=== PATIENT | female | born 1960 | race Caucasian/White ===

== ENCOUNTER 2016-06-29 10:38 | Inpatient (IN) | payer BC ==
[~2016-06-29] VITALS: Ht 152.5 cm; Wt 85.8 kg
[~2016-06-29 10:38] MED LIST: LISINOPRIL; OXYC-541 PO; PAXIL
--- OUTSIDE RECORDS SUMMARY | 2016-06-29 10:42 | XMS REPORT | Continuity of Care Document ---
Author Author Cheyenne Bush MA [facility] Ambulatory Address [address] [place] [id number] Phone Unavailable Payers Payer name Insurance type Covered republican ID Authorization(s) Unknown Problems Condition Effective Dates (start - stop) Clinical Status Psoriasis - *Chronic Tobacco Abuse - *Acute Cellulitis and abscess of leg, except foot - *Acute Depression - *Chronic Anxiety - *Chronic Hypertension, Unspecified - *Chronic Cellulitis - *Resolved Psoriasis - *Chronic Depression - *Chronic Hypertension - *Chronic Disorder of thyroid - *Chronic Tobacco Abuse - *Chronic Otitis externa - *Chronic Family History Family Member Diagnosis Age At Onset Status Father (Unknown) Eczema Yes Brother (Unknown) Cancer Yes Brother (Unknown) Allergies Yes Father (Unknown) CVA (Stroke) Yes Mother (Unknown) Hypertension Yes Mother (Unknown) Depression Yes Mother (Unknown) CVA (Stroke) Yes Father (Unknown) Alcoholism Yes Father (Unknown) Hypertension Yes Brother (Unknown) Asthma Yes Social History Social History Element Description Quantity Unknown Allergies, Adverse Reactions, Alerts Substance Reaction Severity Status SULFANILAMIDE Hives/Skin Rash Unknown Medications Medication Instructions Dosage Effective Dates (start - stop) Status Keflex 500 mg capsule take 1 capsule (500MG) by oral route every 12 hours for 10 days 500 MG - No Longer Active Paxil 20 mg tablet take 1 tablet (20MG) by oral route every day 20 MG - No Longer Active lisinopril 20 mg tablet take 1 tablet (20MG) by oral route every day 20 MG - No Longer Active triamcinolone acetonide 0.1 % lotion apply by topical route 2 times every day a thin layer to the affected area(s) 0 - No Longer Active triamcinolone acetonide 0.1 % topical ointment apply by topical route 2 times every day a thin layer to the affected area(s) 0 - Active Paxil 20 mg tablet take 1 tablet (20MG) by oral route every day 20 MG - Active lisinopril 20 mg tablet take 1 tablet (20MG) by oral route every day 20 MG - Active Immunizations Vaccine Date Status Comments Unknown Results Test Name Date and Time Measure Units Reference Range Abnormal Flag Comments Unknown Vital Signs Date / Time: Height Weight Pulse Rate Blood Pressure Temperature /14:02:00 61.00 in 197.80 lbs 80 /min 164/94 mm[Hg] 99.0 F Procedures Procedure Date Unknown Encounters Encounter Location Date Patient Visit [facility] Patient Visit [facility] Patient Visit [facility] Advance Directives Directive Effective Date Unknown
--- OUTSIDE RECORDS SUMMARY | 2016-06-29 10:42 | XMS REPORT | Continuity of Care Document ---
Author Author [facility] Organization [facility] Address Unknown Phone Unavailable Allergies Medications Problems Procedures Results Encounters ACCT No. Visit Date/Time Discharge Status Pt. Type Provider Facility Loc./Unit Complaint [id number] 06/24/2013 08:46:00 06/24/2013 23 :59:59 CLS Outpatient [id number] 05/27/2013 13:54:00 05/27/2013 23 :59:59 CLS Outpatient
--- OUTSIDE RECORDS SUMMARY | 2016-06-29 10:42 | XMS REPORT | Referral Summary ---
Author Organization Unknown Address Unknown Phone Unavailable Care Team Providers Care Launderer Hand Name Role Phone Jayden Malave Primary Care Physician [phone] Encounter [facility] Date(s): 05/19/14 - 05/19/14 [facility] [address], [place] [address] Discharge Disposition: Home or Self Care Attending Physician: Will Tracy Admitting Physician: Will Tracy Referring Physician: Tawnya Malave MD Vital Signs No data available for this section Problem List Condition Effective Dates Status Health Status Informant Anemia(Confirmed) Active Anxiety(Confirmed) Active Asthma(Confirmed) Active Bronchitis(Confirmed Active ) Cellulitis(Confirmed Resolved ) COPD(Confirmed) Active Depression(Confirmed Active ) Skin Active disorder(Confirmed) Hypertension(Confirm Active ed) Psoriasis(Confirmed) Active Thyroid Active disorder(Confirmed) Allergies, Adverse Reactions, Alerts Substance Reaction Severity Status sulfa drugs Rash Active Medications clobetasol 0.05% topical ointment 1 xuan, Topical, BID, # 60 g, 0 Refill(s), [facility][id number] Start Date: 05/19/14 Status: Ordered DuoNeb 0.5 mg-2.5 mg/3 mL inhalation solution 3 mL, Inhalation, QID, # 120 mL, 0 Refill(s), [facility][id number] Start Date: 05/18/14 Stop Date: 05/28/14 Status: Ordered hydrOXYzine hydrochloride 25 mg oral tablet 1 tabs, Oral, QID, # 90 tabs, 1 Refill(s), Pharmacy: [facility] #[id number], 1 tabs Oral QID Start Date: 05/19/14 Status: Ordered lisinopril 20 mg oral tablet 1 tabs, Oral, Daily, # 30 tabs, 5 Refill(s), Pharmacy: [id number] Start Date: 11/10/13 Status: Ordered Paxil 40 mg oral tablet 1 tabs, Oral, Daily, # 30 tabs, 5 Refill(s), Pharmacy: [id number], 1 tabs Oral Daily Start Date: 11/10/13 Status: Ordered predniSONE 5 mg oral tablet See Instructions, take 20mg for 7 days, then 15mg for 7 days, then 10mg for 7 days, 5mg for 7 days with food, # 70 tabs, 0 Refill(s), Pharmacy: [facility] #[id number], take 20mg for 7 days, then 15mg for 7 days, then 10mg for 7 days, 5mg for 7 days... Special Instructions: take 20mg for 7 days, then 15mg for 7 days, then 10mg for 7 days, 5mg for 7 days with food Start Date: 05/19/14 Status: Ordered Promethazine with Codeine 6.25 mg-10 mg/5 mL oral syrup 5 mL, Oral, q4hr, as needed for cough, # 60 mL, 0 Refill(s) Start Date: 05/18/14 Status: Ordered Zithromax Z-Luis 250 mg oral tablet 1 packets, Oral, Daily, as directed on package labeling, X 5 days, # 6 tabs, 0 Refill(s) Special Instructions: as directed on package labeling Start Date: 05/18/14 Stop Date: 05/23/14 Status: Ordered Results No data available for this section Immunizations No data available for this section Procedures Procedure Date Related Diagnosis Body Site Release/Rt hand trigger tinger 3rd,4th thumb 11/11/07 section Cholecystectomy Hysterectomy Procedure/bladder hydro Procedure/Lt rotator cuff Removal/lumps karo. breast Thyroidectomy Social History Social History Type Response Smoking Status Current every day smoker Assessment and Plan Extracted from: Title: Office Visit Note Author: Will Tracy Date: 05/19/14 Assessment/Plan Plaque psoriasis Clobetasol ointment a thin layer twice daily. We will titrate patient to a lower percentage hydrocortisone cream at her follow-up appointment. Hydroxyzine 25 mg tabs one tablet in the evenings if needed for itching. We also discussed Enbrel treatment. Patient has tried the prescription creams for many years and her plaque psoriasis is worsening. Enbrel information was given to patient. She'll read the information and follow-up with us in 6 weeks sooner if needed. Ordered: Office Visit Level 3 New 56496 Post-inflammatory hyperpigmentation Improve over time Ordered: Office Visit Level 3 New 76520 Xerosis of skin Daily moisturizers, lotions, or creams using sensitive skin products. Ordered: Office Visit Level 3 New 35881 Orders: clobetasol topical, 1 xuan, Topical, BID, # 60 g, 0 Refill(s), Pharmacy : [facility] #[id number] hydrOXYzine, 1 tabs, Oral, QID, # 90 tabs, 1 Refill(s), Pharmacy: [facility] #[id number], 1 tabs Oral QID predniSONE, See Instructions, take 20mg for 7 days, then 15mg for 7 days, then 10mg for 7 days, 5mg for 7 days with food, # 70 tabs, 0 Refill(s), Pharmacy : [facility] #[id number], take 20mg for 7 days, then 15mg for 7 days, then 10mg for 7 days, 5mg for 7 days...
--- OUTSIDE RECORDS SUMMARY | 2016-06-29 10:42 | XMS REPORT | Continuity of Care Document ---
Author Author [facility] Address Unknown Phone Unavailable Payers Payer name Insurance type Covered green party ID Authorization(s) Unknown Problems Condition Effective Dates (start - stop) Clinical Status Cellulitis - *Resolved Psoriasis - *Chronic Depression - *Chronic Hypertension - *Chronic Disorder of thyroid - *Chronic Tobacco Abuse - *Chronic Psoriasis - *Chronic Tobacco Abuse - *Acute Cellulitis and abscess of leg, except foot - *Acute Depression - *Chronic Anxiety - *Chronic Hypertension, Unspecified - *Chronic Otitis externa - *Chronic Family [...] Dosage Effective Dates (start - stop) Status Paxil 20 mg tablet take 1 tablet (20MG) by oral route every day 20 MG - Active lisinopril 20 mg tablet take 1 tablet (20MG) by oral route every day 20 MG - Active triamcinolone acetonide 0.1 % topical ointment apply by topical route 2 times every day a thin layer to the affected area(s) 0 - Active Immunizations Vaccine Date Status Comments Unknown Results Test Name Date and Time Measure Units Reference Range Abnormal Flag Comments Unknown Vital Signs Date / Time: Height Weight Pulse Rate Blood Pressure Temperature /08:58:00 61.00 in 192.80 lbs 76 /min 138/78 mm[Hg] 97.6 F Procedures Procedure Date Unknown Encounters Encounter Location Date Patient Visit [facility] Patient Visit [facility] Patient Visit [facility] Advance Directives Directive Effective Date Unknown
--- OUTSIDE RECORDS SUMMARY | 2016-06-29 10:42 | XMS REPORT | Referral Summary ---
Author Organization Unknown Address Unknown Phone Unavailable Care Team Providers Care Monitor Worker Name Role Phone Jayden Malave Primary Care Physician [phone] Encounter [facility] [id number] Date(s): 06/30/14 - 06/30/14 [facility] [address], [place] [address] [place] Discharge Disposition: Home or Self Care Attending Physician: Will Tracy Admitting Physician: Will Tracy Vital Signs No data available for this [...] BID, # 60 g, 0 Refill(s), [facility] #[id number] Start Date: 05/19/14 Status: Ordered DuoNeb 0.5 mg-2.5 mg/3 mL inhalation solution 3 mL, Inhalation, QID, # 120 mL, 0 Refill(s), Pharmacy: [facility] #[id number] Start Date: 05/18/14 Stop Date: 05/28/14 Status: Ordered hydrocortisone 2.5% topical cream 1 xuan, Topical, BID, # 56 g, 0 Refill(s), Pharmacy: [facility] #[id number] Start Date: 06/30/14 Status: Ordered hydrOXYzine hydrochloride 25 mg oral tablet 1 tabs, Oral, QID, # 90 tabs, 1 Refill(s), Pharmacy: [facility] #[id number], 1 tabs Oral QID Start Date: 05/19/14 Status: Ordered lisinopril 20 mg oral tablet See Instructions, TAKE ONE TABLET BY MOUTH DAILY, # 30 tabs, 1 Refill(s), eRx: [facility] #[id number], TAKE ONE TABLET BY MOUTH DAILY Special Instructions: TAKE ONE TABLET BY MOUTH DAILY Start Date: 06/05/14 Status: Ordered PARoxetine 40 mg oral tablet See Instructions, TAKE ONE TABLET BY MOUTH DAILY, # 30 tabs, 1 Refill(s), eRx: [facility] #[id number], TAKE ONE TABLET BY MOUTH DAILY Special Instructions: TAKE ONE TABLET BY MOUTH DAILY Start Date: 06/09/14 Status: Ordered predniSONE 5 mg oral tablet See Instructions, take 20mg for 7 days, then 15mg for 7 days, then 10mg for 7 days, 5mg for 7 days with food, # 70 tabs, 0 Refill(s), Pharmacy: [facility] #[id number], take 20mg for 7 days, then 15mg [...] 0 Refill(s) Start Date: 05/18/14 Status: Ordered Results No data available for [...] Office Visit Note Author: Will Tracy Date: 06/30/14 Assessment/Plan Post-inflammatory hyperpigmentation May improve with tiime and treatment. Ordered: Office Visit Level 2 Est 98262 Psoriasis Clobetasol ointment a thin layer once to twice daily for no more than 2 weeks. Switch to hydrocortisone 2.5 percent cream twice daily only if needed at that time. We did discuss management with using the creams in detail. We went over the possible risks and side effects of overusing the creams. Patient states she will try to use it sparingly. She'll follow-up in 6 months sooner if needed. Ordered: Office Visit Level 2 Est 36245 Xerosis of skin Recommend applying moisturizers, lotions, or creams daily using sensitive skin products. Ordered: Office Visit Level 2 Est 89720 Orders: hydrocortisone topical, 1 xuan, Topical, BID, # 56 g, 0 Refill(s), Pharmacy: [facility] #[id number]
--- OUTSIDE RECORDS SUMMARY | 2016-06-29 10:42 | XMS REPORT | Referral Summary ---
Author Author [facility] Organization [facility], [facility] Address Unknown Phone Unavailable Care Team Providers Care Fha Underwriter Name Role Phone Kimi Schmitt Primary Care Physician [phone] Encounter VC Date(s): 11/09/14 - 11/09/14 [facility], [address] [place] [address] Discharge Diagnosis: Psoriasis Discharge Diagnosis: HTN (hypertension) Discharge Diagnosis: Depression Discharge Diagnosis: Obesity Discharge Diagnosis: Visit for screening mammogram Discharge Diagnosis: Hyperlipidemia Discharge Diagnosis: Hypothyroidism Discharge Disposition: 01-Home or Self Care Attending Physician: Tawnya Malave MD Admitting Physician: Tawnya Malave MD Vital Signs Most recent to 1 oldest [Reference Range]: Temperature Tympanic 36.5 degC [36.6-38.1 degC] *LOW* (11/09/14 1:52 PM) Peripheral Pulse 78 bpm Rate [60-100 bpm] (11/09/14 1:52 PM) Respiratory Rate 18 br/min [14-20 br/min] (11/09/14 1:52 PM) Blood Pressure 148/64 mmHg [90-140/60-90 mmHg] *HI* (11/09/14 1:52 PM) Problem List Condition Effective Dates Status Health Status Informant Anemia(Confirmed) Active Anxiety(Confirmed) Active Asthma(Confirmed) Active Bronchitis(Confirmed Active ) Cellulitis(Confirmed Resolved ) COPD(Confirmed) Active Depression(Confirmed Active ) Skin Active disorder(Confirmed) Hypertension(Confirm Active ed) Psoriasis(Confirmed) Active Incidental pulmonary Active nodule, > 3mm and < 8mm(Confirmed) Thyroid Active disorder(Confirmed) Allergies, Adverse Reactions, Alerts Substance Reaction Severity Status sulfa drugs Rash Active Medications atorvastatin 20 mg oral tablet 20 mg 1 tabs, Oral, Daily, # 30 tabs, 2 Refill(s), Pharmacy: [facility] # [id number], 1 tabs Oral Daily Start Date: 03/24/15 Status: Ordered clobetasol 0.05% topical ointment 1 xuan, Topical, BID, # 60 g, 0 Refill(s), Pharmacy: [facility] #[id number] Start Date: 05/19/14 Status: Ordered DuoNeb 0.5 mg-2.5 mg/3 mL inhalation solution 3 mL, Inhalation, QID, # 120 mL, 0 Refill(s), Pharmacy: [facility] #[id number] Start Date: 05/18/14 Stop Date: 05/28/14 Status: Ordered FLUoxetine 40 mg oral capsule 40 mg 1 caps, Oral, Daily, # 30 caps, 2 Refill(s), Pharmacy: [facility] # [id number], 1 caps Oral Daily Start Date: 03/24/15 Status: Ordered hydrocortisone 2.5% topical cream 1 xuan, Topical, BID, # 56 g, 0 Refill(s), Pharmacy: [facility] #[id number] Start Date: 06/30/14 Status: Ordered lisinopril-hydrochlorothiazide 20 mg-25 mg oral tablet See Instructions, TAKE ONE TABLET BY MOUTH DAILY,, # 30 tabs, 3 Refill(s), Pharmacy: [facility] #[id number] Start Date: 04/02/15 Status: Ordered Vitamin D with Minerals oral tablet tabs, Oral, Daily, 0 Refill(s) Start Date: 03/24/15 Status: Ordered Results Hematology Most recent to 1 oldest [Reference Range]: WBC [4.8-10.8 8.0 10*3/uL 10*3/uL] (11/09/14 2:28 PM) RBC [4.00-5.20 4.62 10*6/uL 10*6/uL] (11/09/14 2:28 PM) Hgb [12.0-16.0 13.8 gm/dL gm/dL] (11/09/14 2:28 PM) Hct [37.0-47.0 %] 39.4 % (11/09/14 2:28 PM) MCV [82.0-99.0 fL] 85.3 fL (11/09/14 2:28 PM) MCH [27.0-32.0 pg] 29.9 pg (11/09/14 2: PM) MCHC [32.0-36.0 35.0 gm/dL gm/dL] (11/09/14 2: PM) RDW [11.5-14.5 %] 13.9 % (11/09/14 2: PM) Platelet [150-400 262 10*3/uL 10*3/uL] (11/09/14 2: PM) MPV [8.8-14.8 fL] 12.0 fL (11/09/14 2: PM) Immature 0.4 % Granulocytes (11/09/14 2: PM) [0.0-1.0 %] Neutrophils [51-75 56 % %] (11/09/14 2 PM) Lymphocytes [20-46 32 % %] (11/09/14 2 PM) Monocytes [4-11 %] 8 % (11/09/14 2: PM) Eosinophils [0-4 %] 3 % (11/09/14 PM) Basophils [0-2 %] 0 % (11/09/14 2: PM) Neutro Absolute 4.49 10*3 [1.90-7.00 10*3] (11/09/14 2: PM) Lymph Absolute 2.55 10*3 [0.80-3.30 10*3] (11/09/14 2: PM) [place] Absolute 0.66 10*3 [0.30-1.00 10*3] (11/09/14 2: PM) Eos Absolute 0.23 10*3 [0.00-0.50 10*3] (11/09/14 2: PM) Baso Absolute 0.03 10*3 [0.00-0.20 10*3] (11/09/14 2: PM) Chemistry Most recent to 1 oldest [Reference Range]: Sodium Lvl [135-144 142 mEq/L mEq/L] (11/09/14 2:28 PM) Potassium Lvl 4.0 mEq/L [3.5-5.2 mEq/L] (11/09/14 2:28 PM) Chloride [99-111 110 mEq/L mEq/L] (11/09/14 2:28 PM) CO2 [22-31 mEq/L] 23 mEq/L (11/09/14 2: PM) AGAP [3-20] 9 (11/09/14 2: PM) BUN [10-20 mg/dL] 14 mg/dL (11/09/14 2: PM) Glucose Lvl [70-99 76 mg/dL mg/dL] (11/09/14 2: PM) Creatinine Lvl 0.61 mg/dL [0.57-1.11 mg/dL] (11/09/14 2: PM) eGFR [>60 mL/min] >60 mL/min 1 (11/09/14 2 PM) Calcium Lvl 9.6 mg/dL [8.9-10.5 mg/dL] (11/09/14 PM) Albumin Lvl [3.5-5.0 4.1 gm/dL gm/dL] (11/09/14 2 PM) Total Protein 6.9 gm/dL [6.4-8.3 gm/dL] (11/09/14 2 PM) Globulin [1.8-4.0 2.8 gm/dL gm/dL] (11/09/14 2: PM) ALT [0-55 U/L] 15 U/L (11/09/14 2 PM) AST [5-34 U/L] 14 U/L (11/09/14 2: PM) Alk Phos [40-150 94 U/L U/L] (11/09/14 2: PM) Bili Total [0.2-1.2 0.2 mg/dL mg/dL] (11/09/14 2: PM) Chol [0-199 mg/dL] 243 mg/dL *HI* (11/09/14 2: PM) Trig [0-149 mg/dL] 775 mg/dL 2 *HI* (11/09/14 2: PM) HDL [40-84 mg/dL] 38 mg/dL *LOW* (11/09/14 2: PM) LDL [0-130] INVALID (11/09/14 2:28 PM) VLDL Cholesterol INVALID [0-28] (11/09/14 2:28 PM) Cardiac Risk 6.4 [0.0-5.0] *HI* (11/09/14 2:28 PM) TSH [0.35-4.94] 1.89 (11/09/14 2:28 PM) 1Result Comment: Multiply eGFR results by 1.21 for race. 2Result Comment: LDL and VLDL are invalid with Triglyceride greater than 400. Immunizations No data available for this section Procedures Procedure Date Related Diagnosis Body Site Collection of venous blood by venipuncture 11/09/14 Release/Rt hand trigger tinger 3rd,4th thumb 11/11/07 section Cholecystectomy Hysterectomy Procedure/bladder hydro Procedure/Lt rotator cuff Removal/lumps karo. breast Thyroidectomy Social History Social History Type Response Smoking Status Current every day smoker Assessment and Plan Extracted from: Title: Ambulatory Patient Education Author: Tawnya Malave MD Date: 11/10/14 Family Medicine Hypertension Hypertension, commonly called high blood pressure, is when the force of blood pumping through your arteries is too strong. Your arteries are the blood vessels that carry blood from your heart throughout your body. A blood pressure reading consists of a higher number over a lower number, such as 110/72. The higher number (systolic) is the pressure inside your arteries when your heart pumps. The lower number (diastolic) is the pressure inside your arteries when your heart relaxes. Ideally you want your blood pressure below 120/80. Hypertension forces your heart to work harder to pump blood. Your arteries may become narrow or stiff. Having hypertension puts you at risk for heart disease, stroke, and other problems. RISK FACTORS Some risk factors for high blood pressure are controllable. Others are not. Risk factors you cannot control include: Race. You may be at higher risk if you are . Age. Risk increases with age. Gender. Men are at higher risk than women before age 45 years. After age 65 , women are at higher risk than men. Risk factors you can control include: Not getting enough exercise or physical activity. Being overweight. Getting too much fat, sugar, calories, or salt in your diet. Drinking too much alcohol. SIGNS AND SYMPTOMS Hypertension does not usually cause signs or symptoms. Extremely high blood pressure (hypertensive crisis) may cause headache, anxiety, shortness of breath , and nosebleed. DIAGNOSIS To check if you have hypertension, your health care provider will measure your blood pressure while you are seated, with your arm held at the level of your heart. It should be measured at least twice using the same arm. Certain conditions can cause a difference in blood pressure between your right and left arms. A blood pressure reading that is higher than normal on one occasion does not mean that you need treatment. If one blood pressure reading is high, ask your health care provider about having it checked again. TREATMENT Treating high blood pressure includes making lifestyle changes and possibly taking medication. Living a healthy lifestyle can help lower high blood pressure. You may need to change some of your habits. Lifestyle changes may include: Following the DASH diet. This diet is high in fruits, vegetables, and whole grains. It is low in salt, red meat, and added sugars. Getting at least 2 1/2 hours of brisk physical activity every week. Losing weight if necessary. Not smoking. Limiting alcoholic beverages. Learning ways to reduce stress. If lifestyle changes are not enough to get your blood pressure under control, your health care provider may prescribe medicine. You may need to take more than one. Work closely with your health care provider to understand the risks and benefits. HOME CARE INSTRUCTIONS Have your blood pressure rechecked as directed by your health care provider. Only take medicine as directed by your health care provider. Follow the directions carefully. Blood pressure medicines must be taken as prescribed. The medicine does not work as well when you skip doses. Skipping doses also puts you at risk for problems. Do not smoke. Monitor your blood pressure at home as directed by your health care provider. SEEK MEDICAL CARE IF: You think you are having a reaction to medicines taken. You have recurrent headaches or feel dizzy. You have swelling in your ankles. You have trouble with your vision. SEEK IMMEDIATE MEDICAL CARE IF: You develop a severe headache or confusion. You have unusual weakness, numbness, or feel faint. You have severe chest or abdominal pain. You vomit repeatedly. You have trouble breathing. MAKE SURE YOU: Understand these instructions. Will watch your condition. Will get help right away if you are not doing well or get worse. Document Released: 04/02/2006 Document Revised: 04/07/2014 Document Reviewed: [employer] Patient Information 2015 [employer]. This information is not intended to replace advice given to you by your health care provider. Make sure you discuss any questions you have with your health care provider. No follow up information was provided. Extracted from: Title: Office Visit Note Author: Tawnya Malave MD Date: 11/10/14 Assessment/Plan Depression add fluoxetine one daily HTN (hypertension) Change from lisinopril to lisin/HCTZ. Recheck BP in one month Hyperlipidemia Hypothyroidism Obesity [email or web address] medical and surgical weight loss options. Psoriasis Visit for screening mammogram
--- OUTSIDE RECORDS SUMMARY | 2016-06-29 10:42 | XMS REPORT | Referral Summary ---
Author Author [facility], Family Medicine Organization [facility], [facility] Address Unknown Phone Unavailable Care Team Providers Care Verifying Machine Operator Name Role Phone Kimi Schmitt Primary Care Physician [phone] Encounter VC Date(s): 03/24/15 - 03/24/15 [facility] [place], [address] [place] [id number] Discharge Diagnosis: Tobacco user Discharge Diagnosis: Incidental pulmonary nodule, > 3mm and < 8mm Discharge Diagnosis: Psoriasis Discharge Diagnosis: Hypertension Discharge Diagnosis: Depression Discharge Disposition: 01-Home or Self Care Attending Physician: Nemo Schmitt DO Admitting Physician: Nemo Schmitt DO Vital Signs Most recent to 1 oldest [Reference Range]: Peripheral Pulse 70 bpm Rate [60-100 bpm] (03/24/15 8:15 AM) Respiratory Rate 18 br/min [14-20 br/min] (03/24/15 8:15 AM) Blood Pressure 138/90 mmHg [90-140/60-90 mmHg] (03/24/15 8:15 AM) SpO2 99 % (03/24/15 8:15 AM) Problem List Condition Effective Dates Status Health [...] Daily, # 30 tabs, 2 Refill(s), Pharmacy: [facility] # [id number], 1 tabs Oral Daily Start Date: 03/24/15 Status: Ordered clobetasol 0.05% topical ointment 1 xuan, Topical, BID, # 60 g, 0 Refill(s), Pharmacy: [facility] #[id number] Start Date: 05/19/14 Status: Ordered DuoNeb 0.5 mg-2.5 mg/3 mL inhalation solution 3 mL, Inhalation, QID, # 120 mL, 0 Refill(s), Pharmacy: [facility] #[id number] Start Date: 05/18/14 Stop Date: 05/28/14 Status: Ordered FLUoxetine 40 mg oral capsule 40 mg 1 caps, Oral, Daily, # 30 caps, 2 Refill(s), Pharmacy: [facility] # [id number], 1 caps Oral Daily Start Date: 03/24/15 Status: Ordered hydrocortisone 2.5% topical cream 1 xuan, Topical, BID, # 56 g, 0 Refill(s), Pharmacy: [facility] #[id number] Start Date: 06/30/14 Status: Ordered lisinopril-hydrochlorothiazide 20 mg-25 mg oral tablet See Instructions, TAKE ONE TABLET BY MOUTH DAILY, MUST CALL MD FOR APPOINTMENT WITH DR. SCHMITT, # 30 tabs, eRx: [facility] #[id number], TAKE ONE TABLET BY MOUTH DAILY, MUST CALL MD FOR APPOINTMENT WITH DR. SCHMITT Start Date: 02/26/15 Status: Ordered Vitamin D with Minerals oral tablet tabs, Oral, Daily, 0 Refill(s) Start Date: 03/24/15 Status: Ordered Results No data available for [...] Extracted from: Title: Office Visit Note Author: Nemo Schmitt DO Date: 03/24/15 Assessment/Plan Depression We will increase her Prozac to 40 mg and recheck in 4-6 weeks. Ordered: Office Visit Level 4 Est 08072 Hypertension Continue current medications, patient will be due for CMP at next visit in 4-6 weeks. Incidental pulmonary nodule, > 3mm and < 8mm CT ordered today. We'll make further recommendations based on results. Ordered: CT Thorax w/o Contrast Office Visit Level 4 Est 90827 Psoriasis Continue current regimen. Patient was counseled not to use her higher potency steroid cream excessively. Patient voiced understanding. Return to clinic with problems. Ordered: Office Visit Level 4 Est 48175 Tobacco user Patient was counseled on the importance of quitting smoking today. Ordered: Office Visit Level 4 Est 23329 Orders: atorvastatin, 20 mg 1 tabs, Oral, Daily, # 30 tabs, 2 Refill(s), Pharmacy: [facility] #[id number], 1 tabs Oral Daily FLUoxetine, 40 mg 1 caps, Oral, Daily, # 30 caps, 2 Refill(s), Pharmacy: [facility] #[id number], 1 caps Oral Daily
--- OUTSIDE RECORDS SUMMARY | 2016-06-29 10:42 | XMS REPORT | Referral Summary ---
Author Organization Unknown Address Unknown Phone Unavailable Care Team Providers Care Dietetics Director Name Role Phone Jayden Malave Primary Care Physician [phone] Encounter VC Date(s): 05/18/14 - 05/18/14 [facility], [place], Family Medicine [address] [place] [address] [place] [id number] Discharge Diagnosis: Cough Discharge Diagnosis: COPD Discharge Diagnosis: Bronchitis Discharge Disposition: Home or Self Care Attending Physician: Margoth Linda APRN Admitting Physician: Margoth Linda APRN Vital Signs Most recent to 1 oldest [Reference Range]: Temperature Oral 36.8 degC [35.8-37.3 degC] (05/18/14 2:16 PM) Peripheral Pulse 92 bpm Rate [60-100 bpm] (05/18/14 2:16 PM) Blood Pressure 154/94 mmHg [90-140/60-90 mmHg] *HI* (05/18/14 2:16 PM) Problem List Condition Effective Dates Status Health Status Informant Anemia(Confirmed) Active Anxiety(Confirmed) Active Asthma(Confirmed) Active Bronchitis(Confirmed Active ) Cellulitis(Confirmed Resolved ) COPD(Confirmed) Active Depression(Confirmed Active ) Skin Active disorder(Confirmed) Hypertension(Confirm Active ed) Psoriasis(Confirmed) Active Thyroid Active disorder(Confirmed) Allergies, Adverse Reactions, Alerts Substance Reaction Severity Status sulfa drugs Rash Active Medications DuoNeb 0.5 mg-2.5 mg/3 mL inhalation solution 3 mL, Inhalation, QID, # 120 mL, 0 Refill(s), Pharmacy: [facility] #[id number] Start Date: 05/18/14 Stop Date: 05/28/14 Status: Ordered lisinopril 20 mg oral tablet 1 tabs, Oral, Daily, # 30 tabs, 5 Refill(s), Pharmacy: [id number] Start Date: 11/10/13 Status: Ordered Paxil 40 mg oral tablet 1 tabs, Oral, Daily, # 30 tabs, 5 Refill(s), Pharmacy: [id number], 1 tabs Oral Daily Start Date: 11/10/13 Status: Ordered Promethazine with Codeine 6.25 mg-10 [...] 05/18/14 Stop Date: 05/23/14 Status: Ordered Results Hematology Most recent to 1 oldest [Reference Range]: WBC [5.0-10.0 K/uL] 7.0 K/uL (05/18/14 2:53 PM) RBC [3.70-5.20 M/uL] 4.40 M/uL (05/18/14 2:53 PM) Hgb [12.0-16.0 12.7 gm/dL gm/dL] (05/18/14 2:53 PM) Hct [37.0-47.0 %] 37.8 % (05/18/14 2:53 PM) MCV [80.0-96.0 fL] 85.9 fL (05/18/14 2:53 PM) MCH [26.0-34.0 pg] 28.9 pg (05/18/14 2:53 PM) MCHC [32.0-36.0 33.6 gm/dL gm/dL] (05/18/14 2:53 PM) RDW [0.0-14.5 %] 13.7 % (05/18/14 2:53 PM) Platelet [150-400 235 K/uL K/uL] (05/18/14 2:53 PM) MPV [8.8-14.8 fL] 10.0 fL (05/18/14 2:53 PM) Neutrophils [50-70 52 % %] (05/18/14 2:53 PM) Band Man [0-6 %] 1 % (05/18/14 2:53 PM) Lymphocytes [20-40 19 % %] *LOW* (05/18/14 2:53 PM) Abn Lymph Man [-1-0 8 % %] *HI* (05/18/14 2:53 PM) Monocytes [4-8 %] 14 % *HI* (05/18/14 2:53 PM) Eosinophils [0-6 %] 5 % (05/18/14 2:53 PM) Basophils [0-2 %] 1 % (05/18/14 2:53 PM) Neutro Absolute 3.71 K/uL [2.50-7.00 K/uL] (05/18/14 2:53 PM) Lymph Absolute 1.89 K/uL [1.00-4.00 K/uL] (05/18/14 2:53 PM) [place] Absolute 0.98 K/uL [0.20-0.80 K/uL] *HI* (05/18/14 2:53 PM) Eos Absolute 0.35 K/uL [0.00-0.60 K/uL] (05/18/14 2:53 PM) Baso Absolute 0.07 K/uL [0.00-0.30 K/uL] (05/18/14 2:53 PM) Differential Manual *ABN* (05/18/14 2:53 PM) Immunizations No data available for this section Procedures Procedure Date Related Diagnosis Body Site Collection of venous blood by venipuncture 05/18/14 Release/Rt hand trigger tinger 3rd,4th thumb 11/11/07 section Cholecystectomy Hysterectomy Procedure/bladder hydro Procedure/Lt rotator cuff Removal/lumps karo. breast Thyroidectomy Social History Social History Type Response Smoking Status Current every day smoker Assessment and Plan Extracted from: Title: Ambulatory Patient Education Author: Margoth Linda APRN Date : 05/18/14 Family Medicine Chronic Obstructive Pulmonary Disease Chronic obstructive pulmonary disease (COPD) is a lung disease. The lungs become damaged. This makes it hard to get air in and out of your lungs. The damage to your lungs cannot be changed. There are things you can do to improve the lungs and make you feel better. HOME CARE Take all medicines as told by your doctor. Use medicines that you breathe in (inhale ) as told by your doctor. Avoid medicines or cough syrups that dry up your airway (antihistamines ) and do not allow you to get rid of thick spit. If you smoke, stop. Avoid being around smoke, chemicals, and fumes that bother your breathing. Avoid people that have a catchy (contagious ) sickness. Avoid going outside when it is very hot, cold, or humid. Use humidifiers in your home and near your bedside if it helps your breathing. Drink enough fluids to keep your pee (urine ) clear or pale yellow. Eat healthy foods. Eat smaller meals more often and rest before meals. Ask your doctor if it is okay to take vitamins or pills with minerals ( supplements ). Exercise and stay active. Rest with activity. Get into a comfortable position when you have trouble breathing. Learn and use tips on how to relax. Learn and use tips on how to control your breathing as told by your doctor. Try: Breathing in through your nose for 1 second. Then, breath out (exhale ) through your puckered (like a whistle) lips for 2 seconds. Putting one hand on your belly (abdomen ). Breathe in slowly through your nose. Your hand on your belly should move out. Breathe out slowly through your puckered lips. Your hand on your belly should move in as you breathe out. Learn and use controlled coughing to clear thick spit from your lungs. 1. Lean your head slightly forward. 2. Breathe in deeply. 3. Try to hold your breath for 3 seconds. 4. Keep your mouth slightly open while coughing 2 times. 5. Spit any thick spit out into a tissue. 6. Rest and do the steps again 1 or 2 times as needed. Get all shots (vaccines ) a told by your doctor. Learn how to manage stress. Schedule and go to all follow-up doctor visits. Go to therapy that can help you improve your lungs (pulmonary rehabilitation ) as told by your doctor. Use oxygen at home as told by your doctor. GET HELP RIGHT AWAY IF: You can feel your heart beating really fast. You have shortness of breath while resting. You have shortness of breath that stops you from being able to talk. You have shortness of breath that stops you from doing normal activities. You have chest pain lasting longer than 5 minutes. You start to shake uncontrollably (seizure ). Your family or friends notice that you are flustered or confused. You cough up more thick spit than usual. There is a change in the color or thickness of the spit. Breathing is more difficult than usual. Your breathing is faster than usual. Your skin color is more blueish than usual. You are running out of the medicine you take for breathing. You are anxious, uneasy, fearful, or restless. You have a fever. MAKE SURE YOU: Understand these instructions. Will watch your condition. Will get help right away if you are not doing well or get worse. Document Released: 09/18/2008 Document Revised: 03/19/2013 Document Reviewed: [facility] [place] Patient Information 2014 Heavy. No follow up information was provided. Extracted from: Title: Office Visit Note Author: Margoth Linda APRN Date: 05/18/14 Assessment/Plan Bronchitis flu scr neg. cbc ok. cxr-ok. Solumedrol 125mg given in office today. Albuterol tx given in office today with improvement. Zpack. Duoneb tx. Medrol dose pack. cough med script given. Mucinex Dm as needed. Push fluids. Call us tomorrow with a report. COPD Cough Ordered: Admin set, with small volume nonfiltered pneumatic nebulizer, disposable [id number] CBC w/ Differential
--- OUTSIDE RECORDS SUMMARY | 2016-06-29 10:42 | XMS REPORT | Referral Summary ---
Author Author [facility], Family Medicine Organization [facility], [facility] Address Unknown Phone Unavailable Care Team Providers Care Day Treatment Clinician/Art Therapist Name Role Phone Kimi Schmitt Primary Care Physician [phone] Encounter VC Date(s): 08/30/15 - 08/30/15 [facility] [place], [address] [place] [id number] Discharge Diagnosis: Hypertension Discharge Diagnosis: Psoriasis Discharge Diagnosis: Dyspareunia Discharge Diagnosis: Depression Discharge Disposition: 01-Home or Self Care Attending Physician: Nemo Schmitt DO Admitting Physician: Nemo Schmitt DO Vital Signs Most recent to 1 oldest [Reference Range]: Peripheral Pulse 64 bpm Rate [60-100 bpm] (08/30/15 8:33 AM) Respiratory Rate 18 br/min [14-20 br/min] (08/30/15 8:33 AM) Blood Pressure 120/72 mmHg [90-140/60-90 mmHg] (08/30/15 8:33 AM) SpO2 98 % (08/30/15 8:33 AM) Problem List Condition Effective Dates Status [...] Active Medications atorvastatin 20 mg oral tablet See Instructions, TAKE 1 TABLET BY MOUTH DAILY, # 30 tabs, 3 Refill(s), eRx: [facility] #[id number], TAKE 1 TABLET BY MOUTH DAILY Start Date: 06/29/15 Status: Ordered clobetasol 0.05% topical ointment 1 xuan, Topical, BID, # 60 g, 4 Refill(s), Pharmacy: [facility] #[id number] Start Date: 08/30/15 Status: Ordered DuoNeb 0.5 mg-2.5 mg/3 mL inhalation solution 3 mL, Inhalation, QID, # 120 mL, 0 Refill(s), Pharmacy: [facility] #[id number] Start Date: 05/18/14 Stop Date: 05/28/14 Status: Ordered FLUoxetine 40 mg oral capsule See Instructions, TAKE 1 CAPSULE BY MOUTH DAILY, # 30 caps, 3 Refill(s), eRx: [facility] #[id number], TAKE 1 CAPSULE BY MOUTH DAILY Start Date: 06/29/15 Status: Ordered hydrocortisone 2.5% topical cream 1 xuan, Topical, BID, # 56 g, 0 Refill(s), Pharmacy: [facility] #[id number] Start Date: 06/30/14 Status: Ordered lisinopril-hydrochlorothiazide 20 mg-25 mg oral tablet See Instructions, TAKE ONE TABLET BY MOUTH DAILY, # 30 tabs, 6 Refill(s), Pharmacy: [facility] #[id number] Start Date: 08/30/15 Status: Ordered Osphena 60 mg oral tablet 60 mg 1 tabs, Oral, Daily, # 30 tabs, 6 Refill(s), Pharmacy: [facility] # [id number], 1 tabs Oral Daily Start Date: 08/30/15 Status: Ordered Vitamin D with Minerals oral tablet tabs, Oral, Daily, 0 Refill(s) Start Date: 03/24/15 Status: Ordered Results Chemistry Most recent to 1 oldest [Reference Range]: Sodium Lvl [135-144 139 mEq/L mEq/L] (08/30/15 9:28 AM) Potassium Lvl 3.9 mEq/L [3.5-5.2 mEq/L] (08/30/15 9:28 AM) Chloride [99-111 102 mEq/L mEq/L] (08/30/15 9:28 AM) CO2 [22-31 mEq/L] 27 mEq/L (08/30/15 9:28 AM) AGAP [3-20] 10 (08/30/15 9:28 AM) BUN [10-20 mg/dL] 20 mg/dL (08/30/15 9:28 AM) Glucose Lvl [70-99 103 mg/dL mg/dL] *HI* (08/30/15 9:28 AM) Creatinine Lvl 0.69 mg/dL [0.57-1.11 mg/dL] (08/30/15 9:28 AM) eGFR [>60 mL/min] >60 mL/min 1 (08/30/15 9:28 AM) Calcium Lvl 9.6 mg/dL [8.9-10.5 mg/dL] (08/30/15 9:28 AM) Albumin Lvl [3.5-5.0 4.3 gm/dL gm/dL] (08/30/15 9:28 AM) Total Protein 6.4 gm/dL [6.4-8.3 gm/dL] (08/30/15 9:28 AM) Globulin [1.8-4.0 2.1 gm/dL gm/dL] (08/30/15 9:28 AM) ALT [0-55 U/L] 15 U/L (08/30/15 9:28 AM) AST [5-34 U/L] 15 U/L (08/30/15 9:28 AM) Alk Phos [40-150 88 U/L U/L] (08/30/15 9:28 AM) Bili Total [0.2-1.2 0.6 mg/dL mg/dL] (08/30/15 9:28 AM) Chol [0-199 mg/dL] 175 mg/dL (08/30/15 9:28 AM) Trig [0-149 mg/dL] 118 mg/dL (08/30/15 9:28 AM) HDL [40-84 mg/dL] 40 mg/dL (08/30/15 9:28 AM) LDL [0-130 mg/dL] 111 mg/dL (08/30/15 9:28 AM) VLDL Cholesterol 24 mg/dL [0-28 mg/dL] (08/30/15 9:28 AM) Cardiac Risk 4.4 [0.0-5.0] (08/30/15 9:28 AM) TSH with Reflex Free 2.59 T4 [0.35-4.94] (08/30/15 9:28 AM) 1Result Comment: Multiply eGFR results by 1.21 for race. Immunizations No data available for this section Procedures Procedure Date Related Diagnosis Body Site Collection of venous blood by venipuncture 08/30/15 Release/Rt hand trigger tinger 3rd,4th thumb 11/11/07 section Cholecystectomy Hysterectomy Procedure/bladder hydro Procedure/Lt rotator cuff Removal/lumps karo. breast Thyroidectomy Social History Social History Type Response Smoking Status Current every day smoker Assessment and Plan Extracted from: Title: Office Visit Note Author: Nemo Schmitt DO Date: 08/30/15 Assessment/Plan Depression Continue Prozac at current dose. Ordered: Office Visit Level 4 Est 41887 Dyspareunia She will try Osphena and see if this is effective. Cautioned onlisinopril benefits. Ordered: Office Visit Level 4 Est 78735 Hyperlipidemia CMP and FLP today. Ordered: Comprehensive Metabolic Panel Lipid Panel Office Visit Level 4 Est 91949 Hypertension Doing well currently. Return to clinic 6 months. Ordered: Office Visit Level 4 Est 92928 Psoriasis Continue clobetasol. Status post partial thyroidectomy We will get a TSH today as it is been quite some time since she's had one. Ordered: TSH with Reflex Free T4 Orders: clobetasol topical, 1 xuan, Topical, BID, # 60 g, 4 Refill(s), Pharmacy : [facility] #[id number] lisinopril-hydrochlorothiazide, See Instructions, TAKE ONE TABLET BY MOUTH DAILY, # 30 tabs, 6 Refill(s), Pharmacy: [facility] #[id number] ospemifene, 60 mg 1 tabs, Oral, Daily, # 30 tabs, 6 Refill(s), Pharm[facility]: [facility] #[id number], 1 tabs Oral Daily
--- OUTSIDE RECORDS SUMMARY | 2016-06-29 10:42 | XMS REPORT | Referral Summary ---
Author Organization Unknown Address Unknown Phone Unavailable Care Team Providers Care Tow Truck Operator Name Role Phone Jayden Malave Primary Care Physician [phone] Encounter VC Date(s): 07/07/14 - 07/07/14 [facility], [place], Family Medicine [address] [place] [address] [place] [id number] Discharge Diagnosis: Abdominal pain Discharge Diagnosis: GERD (gastroesophageal reflux disease) Discharge Disposition: Home or Self Care Attending Physician: Margoth Linda APRN Admitting Physician: Margoth Linda APRN Vital Signs Most recent to 1 oldest [Reference Range]: Temperature Tympanic 37.1 degC [36.6-38.1 degC] (07/07/14 2:25 PM) Peripheral Pulse 88 bpm Rate [60-100 bpm] (07/07/14 2:25 PM) Blood Pressure 160/90 mmHg [90-140/60-90 mmHg] *HI* (07/07/14 2:25 PM) Problem List Condition Effective Dates Status [...] BID, # 60 g, 0 Refill(s), Pharmacy: [facility] #[id number] Start Date: 05/19/14 Status: Ordered DuoNeb 0.5 mg-2.5 mg/3 mL inhalation solution 3 mL, Inhalation, QID, # 120 mL, 0 Refill(s), Pharmacy: [facility] #[id number] Start Date: 05/18/14 Stop Date: 05/28/14 Status: Ordered hydrocortisone 2.5% topical cream 1 xuan, Topical, BID, # 56 g, 0 Refill(s), Pharmacy: [facility] #[id number] Start Date: 06/30/14 Status: Ordered hydrOXYzine hydrochloride 25 mg oral tablet 1 tabs, Oral, QID, # 90 tabs, 1 Refill(s), Pharmacy: [facility] #[id number], 1 tabs Oral QID Start Date: 05/19/14 Status: Ordered lisinopril 20 mg oral tablet See Instructions, TAKE ONE TABLET BY MOUTH DAILY, # 30 tabs, 1 Refill(s), eRx: [facility] #[id number], TAKE ONE TABLET BY MOUTH DAILY Special Instructions: TAKE ONE TABLET BY MOUTH DAILY Start Date: 06/05/14 Status: Ordered PARoxetine 40 mg oral tablet See Instructions, TAKE ONE TABLET BY MOUTH DAILY, # 30 tabs, 1 Refill(s), eRx: [facility] #[id number], TAKE ONE TABLET BY MOUTH DAILY Special Instructions: TAKE ONE TABLET BY MOUTH DAILY Start Date: 06/09/14 Status: Ordered Results Hematology Most recent to 1 oldest [Reference Range]: WBC [5.0-10.0 K/uL] 7.2 K/uL (07/07/14 3:02 PM) RBC [3.70-5.20 M/uL] 4.81 M/uL (07/07/14 3:02 PM) Hgb [12.0-16.0 14.3 gm/dL gm/dL] (07/07/14 3:02 PM) Hct [37.0-47.0 %] 42.0 % (07/07/14 3:02 PM) MCV [80.0-96.0 fL] 87.3 fL (07/07/14 3:02 PM) MCH [26.0-34.0 pg] 29.7 pg (07/07/14 3:02 PM) MCHC [32.0-36.0 34.0 gm/dL gm/dL] (07/07/14 3:02 PM) RDW [0.0-14.5 %] 13.9 % (07/07/14 3:02 PM) Platelet [150-400 221 K/uL K/uL] (07/07/14 3:02 PM) MPV [8.8-14.8 fL] 10.1 fL (07/07/14 3:02 PM) Neutrophils [50-70 74 % %] *HI* (07/07/14 3:02 PM) Lymphocytes [20-40 18 % %] *LOW* (07/07/14 3:02 PM) Monocytes [4-8 %] 6 % (07/07/14 3:02 PM) Eosinophils [0-6 %] 1 % (07/07/14 3:02 PM) Basophils [0-2 %] 0 % (07/07/14 3:02 PM) Neutro Absolute 5.35 K/uL [2.50-7.00 K/uL] (07/07/14 3:02 PM) Lymph Absolute 1.33 K/uL [1.00-4.00 K/uL] (07/07/14 3:02 PM) [place] Absolute 0.46 K/uL [0.20-0.80 K/uL] (07/07/14 3:02 PM) Eos Absolute 0.05 K/uL [0.00-0.60 K/uL] (07/07/14 3:02 PM) Baso Absolute 0.02 K/uL [0.00-0.30 K/uL] (07/07/14 3:02 PM) Urinalysis Most recent to 1 oldest [Reference Range]: UA Color Yellow (07/07/14 3:08 PM) UA Appear Clear (07/07/14 3:08 PM) UA pH [5.0-8.0] 6.0 (07/07/14 3:08 PM) UA Leuk Est Negative [Negative] (07/07/14 3:08 PM) UA Nitrite Negative [Negative] (07/07/14 3:08 PM) UA Protein Negative [Negative] (07/07/14 3:08 PM) UA Glucose Negative [Negative] (07/07/14 3:08 PM) UA Ketones Negative [Negative] (07/07/14 3:08 PM) UA Urobilinogen 0.2 mg/dL (07/07/14 3:08 PM) UA Bili [Negative] Negative (07/07/14 3:08 PM) UA Blood Pos 1+ *ABN* (07/07/14 3:08 PM) UA Spec Grav 1.020 [1.003-1.030] (07/07/14 3:08 PM) Type Clean Catch (07/07/14 3:08 PM) UA WBC [0-4] 0-2 (07/07/14 3:08 PM) UA RBC [0-2] 0-2 (07/07/14 3:08 PM) Epithelial Cells 2-5 (07/07/14 3:08 PM) UA Mucous Present (07/07/14 3:08 PM) Immunizations No data available for this section Procedures Procedure Date Related Diagnosis Body Site Collection of venous blood by venipuncture 07/07/14 Release/Rt hand trigger tinger 3rd,4th thumb 11/11/07 section Cholecystectomy Hysterectomy Procedure/bladder hydro Procedure/Lt rotator cuff Removal/lumps karo. breast Thyroidectomy Social History Social History Type Response Smoking Status Current every day smoker Assessment and Plan Extracted from: Title: Office Visit Note Author: Margoth Linda APRN Date: 07/07/14 Assessment/Plan 1.GERD (gastroesophageal reflux disease) reviewed cbc, ua and xray. zantac. prilosec. bland diet. rest. let us know if s/s persist or worsen. Abdominal pain awaiting approval of ct from insurance. Ordered: CT Abdomen w/o Contrast
[2016-06-29] MEDS ORDERED: ALBUTEROL/IPRATROPIUM INHAL. 2.5mg-0.5mg/3ml Neb. AEROSOL ONE ×3 (10:45→12:30)
--- NOTE | 2016-06-29 10:54 | ERPDOC ---
Departure Disposition Decision Date: Jun 29, 2016 Disposition Decision Time: 13:39 Disposition: 02 TO [facility] [place] [facility] Impression Impression Impression: Primary Impression: COPD exacerbation Severity: Moderate Condition: Stable Seen By: Physician only Referrals: SHRADDHA KRISHNAMURTHY APRN (Family) Patient Instructions: COPD (Chronic Obstructive Pulmonary Disease) (ED) Problems/Meds/Labs Reviewed?: Yes Medications reviewed and manag: Yes Follow up care ordered?: Yes Mental Status: Alert, Oriented Scripts Prednisone (Prednisone) 10 Mg Tablet 10 MG PO WB, #15 TAB Take 3 tablets, by mouth, once a day with breakfast for 2 days, then 2 tablets by mouth once a day for 3 days, then 1 tablet daily by mouth once a day for 3 days, then stop. Prov: MARIANO OLIVERA MD 07/01/16 Benzonatate (Benzonatate) 200 Mg Capsule 200 MG PO TID, #10 CAP Prov: MARIANO OLIVERA MD 07/01/16 Acetaminophen (Tylenol) 325 Mg Tablet 325-650 MG PO Q5H Y for DISCOMFORT, #30 TAB Prov: MARIANO OLIVERA MD 07/01/16 Oseltamivir Phosphate (Tamiflu) 75 Mg Capsule 75 MG PO BID, #6 CAP Prov: MAIRANO OLIVERA MD 07/01/16 HPI - Chest Pain General Stated Complaint: SOA Time Seen by Provider: 10:39 Source: patient Exam Limitations: no limitations HPI - Chest Pain Initial Comments Pt is a 55 Y/O F seen in primary MD's office today for fever as high as 102 and shortness of air. Pt was found to be hypoxic wuth wheezing, was referred to the ED for further evaluation. Occurred At: home Onset/Timing: Gradual, Getting worse Duration: other (3 days) Aspirin Treatment Today: contraindicated Allergies: Coded Allergies: Sulfa (Sulfonamide Antibiotics) (Verified Allergy, Intermediate, WHEEZE, HIVES, 08/13/14) Past History Past Medical History Metabolic: hypertension, hypothyroidism Respiratory: COPD Psychological: depression Surgical History General: other Reproductive/: , hysterectomy Joint: hand, shoulder Vaccines Hx Influenza Vaccination: No ("makes me turn bright red") Hx Pneumococcal Vaccination: No ("don't think i've ever had it") Social History Smoking Status: Current every day smoker Substance Use Type: does not use Alcohol Intake: none Review of Systems Constitutional Constitutional: appetite decrease, chills, fever, weakness, DENIES: dizziness ENMT Sinuses: DENIES: congestion, rhinorrhea Mouth/Throat: DENIES: scratchy throat, sore throat Cardiovascular Cardiac: dyspnea on exertion, DENIES: chest pain Rhythm/Rate: DENIES: palpitations, tachycardia Pulmonary Respiratory: cough, dyspnea, tachypnea, DENIES: sputum GI Upper Abdomen: DENIES: nausea, pain, vomiting Lower Abdomen: DENIES: constipation, diarrhea, pain General: DENIES: frequency, urgency Musculoskeletal General: DENIES: cramps, pain, weakness Integumentary Skin: DENIES: color change, itching, rash Endocrine Endocrine: DENIES: heat/cold intolerance Hematologic/Lymphatic Hematologic/Lymphatic: DENIES: anemia Physical Exam General General Nourishment: well nourished, well developed General Body Habitus: well groomed Vitals and Pain Weight: Kilograms: Height (feet): 5 Height (inches): 0.00 Triage Pain Scale: RN VS reviewed by Provider: Yes Eyes (brief) Eyes Brief: found: EOMI ENMT (brief) ENMT Brief: FOUND: mucosa moist, normal dentition, NOT FOUND: nasal erythema, pharnyx erythema, tonsillar deviation Neck (brief) Neck: NOT FOUND: adenopathy, spasm, tenderness Respiratory Inspection: NOT FOUND: audible stridor, audible wheezing, hyperpnea, periodic breathing, tachypnea Auscultation: FOUND: decreased, wheezes Cardiovascular (brief) Cardiac: FOUND: regular rate, regular rhythm Capillary Refill: <2 sec Abdomen (brief) Abdominal Brief: FOUND: bowel normo active x4, soft, NOT FOUND: distended, tender Lymphatic (brief) Lymphatic Brief: NOT FOUND: adenopathy Musculoskeletal (brief) Musculoskeletal Brief: NOT FOUND: spasm, tenderness Integumentary (brief) Integumentary Brief: FOUND: dry, pink, warm, NOT FOUND: rash Neurologic (brief) Neurological Brief: FOUND: CN w/o gross def to obs, motor-no gross deficits, sensory-no gross deficits Psychiatric (brief) Psychiatric Brief: FOUND: alert, oriented Differential Diagnoses Considering: Acute ME, Anxiety/Panic, Costochondritis, Hypertensive Emergency, Pericarditis, Pleurisy, Pneumothorax, Pneumonia, Other (COPD Exacerbation) Progress Results/Orders Orders Lab Results Medications Current ED Medications Albuterol/ Ipratropium (Duoneb) 3 ml O ONCE AEROSOL Last administered on 11:00; Start 06/29/16 at 10:45; Stop 06/29/16 at 10:46; Status DC Methylprednisolone Sodium Succinate (Solu-Medrol) 125 mg O ONCE IV Last administered on 06/29/16 11:00; Start 06/29/16 at 11:00; Stop 06/29/16 at 11:01 ; Status DC Albuterol/ Ipratropium (Duoneb) 3 ml O ONCE AEROSOL Last administered on 10:50; Start 06/29/16 at 11:00; Stop 06/29/16 at 11:01; Status DC Levalbuterol HCl (XOPENEX 1.25mg/ 3ml) 1.25 mg O ONCE AEROSOL Last administered on 06/29/16 11:45; Start 06/29/16 at 11:45; Stop 06/29/16 at 11:46 ; Status DC Benzonatate (TESSALON PERLES 100 mg) 200 mg O ONCE PO Last administered on 11:48; Start 06/29/16 at 11:45; Stop 06/29/16 at 11:46; Status DC Albuterol/ Ipratropium (Duoneb) 3 ml O ONCE AEROSOL Last administered on 12:30; Start 06/29/16 at 12:30; Stop 06/29/16 at 12:31; Status DC EKG EKG : Rate: 60-100 Rhythm: sinus [place]: normal QRS: normal Intervals: normal ST/T: non-specific changes Interpreted by: signing physician Xray Xray : Xray: CXR PA/Lat Interpretation: Normal, Interpreted by SRIKANTH Baez MD Jun 29, 2016 10:54 Creatinine 0.5MG/DL Glomerular Filtration Rate Calc 129 BUN/Creatinine Ratio 22RATIO Glucose Level 95MG/DL Calculated Osmolality 276MOSM/KG Calcium Level 9.5MG/DL Total Bilirubin 0.50MG/DL Icterus Index < 2 Aspartate Amino Transf (AST/SGOT) 40U/L Alanine Aminotransferase (ALT/SGPT) 47U/L Alkaline Phosphatase 95U/L Troponin I < 0.012ng/ml NB-Xnl-[id number]-Type Natriuretic Peptide 145PG/ML Total Protein 7.1G/DL Albumin 3.8G/DL Globulin 3.3G/DL Albumin/Globulin Ratio 1.2RATIO Chemistry Specimen Hemolysis < 15 Medications Current ED Medications Albuterol/ Ipratropium (Duoneb) 3 ml O ONCE AEROSOL Last administered on 11:00; Start 06/29/16 at 10:45; Stop 06/29/16 at 10:46; Status DC Methylprednisolone Sodium Succinate (Solu-Medrol) 125 mg O ONCE IV Last administered on 06/29/16 11:00; Start 06/29/16 at 11:00; Stop 06/29/16 at 11:01 ; Status DC Albuterol/ Ipratropium (Duoneb) 3 ml O ONCE AEROSOL Last administered on 10:50; Start 06/29/16 at 11:00; Stop 06/29/16 at 11:01; Status DC Levalbuterol HCl (XOPENEX 1.25mg/ 3ml) 1.25 mg O ONCE AEROSOL Last administered on 06/29/16 11:45; Start 06/29/16 at 11:45; Stop 06/29/16 at 11:46 ; Status DC Benzonatate (TESSALON PERLES 100 mg) 200 mg O ONCE PO Last administered on 11:48; Start 06/29/16 at 11:45; Stop 06/29/16 at 11:46; Status DC Albuterol/ Ipratropium (Duoneb) 3 ml O ONCE AEROSOL ; Start 06/29/16 at 12:30; Stop 06/29/16 at 12:31; Status DC SRIKANTH DOMINGO MD Jun 29, 2016 10:54
--- OUTSIDE RECORDS SUMMARY | 2016-06-29 11:15 | XMS REPORT | Continuity of Care Document ---
Author Author [facility] Organization [facility] Address Unknown Phone Unavailable Allergies Medications Problems Procedures Results Encounters ACCT No. Visit Date/Time Discharge Status Pt. Type Provider Facility Loc./Unit Complaint [id number] 06/24/2013 08:46:00 06/24/2013 23 :59:59 CLS Outpatient [id number] 05/27/2013 13:54:00 05/27/2013 23 :59:59 CLS Outpatient
[2016-06-29 11:16] LABS: BASOPHILS % (AUTO) 0.5 % (0-2); EOSINOPHILS # (AUTO) 0.1 T/MM3 (0-0.5); EOSINOPHILS % (AUTO) 1.3 % (0-4); HCT - HEMATOCRIT 37.5 % (36-46); HGB - HEMOGLOBIN 12.7 GM/DL (12-16); IMMATURE GRANULOCYTE # (AUTO) 0.01 T/MM3 (0.00-0.03); IMMATURE GRANULOCYTE % (AUTO) 0.3 % (0.0-0.5); LYMPHOCYTES # (AUTO) 1.5 T/MM3 (1-4.8); LYMPHOCYTES % (AUTO) 39.3 % (23-45); MEAN CORPUSCULAR HGB 29.6 UUG (26-34); MEAN CORPUSCULAR HGB CONC(MCHC 33.9 GM/DL (31-37); MEAN CORPUSCULAR VOLUME 87.4 UM3 (80-100); MEAN PLATELET VOLUME 10.9 UM3 (9.4-12.4); MONOCYTES # (AUTO) 0.3 T/MM3 (0-0.8); MONOCYTES % (AUTO) 6.5 % (0-9.0); NEUTROPHILS % (AUTO) 52.1 % (33-66); RED BLOOD COUNT 4.29 M/MM3 (4.00-5.20); WBC - WHITE BLOOD COUNT 3.9 T/MM3 (4.5-11.0)
[2016-06-29 11:26] LABS: ALBUMIN 3.8 G/DL (3.5-5.0); ALBUMIN/GLOBULIN RATIO 1.2 RATIO (1.1-2.2); ALKALINE PHOSPHATASE 95 U/L (38-126); ALT (SGPT) 47 U/L (9-52); ANION GAP 10 MEQ/L (5-15); AST (SGOT) 40 U/L (14-36); BUN/CREATININE RATIO 22 RATIO (6-26); CALCIUM 9.5 MG/DL (8.4-10.2); CHLORIDE 110 MEQ/L (98-107); CO2 - CARBON DIOXIDE 24 MEQ/L (22-30); CREATININE 0.5 MG/DL (0.7-1.2); GLOMERULAR FILTRATION RATE 129; GLUCOSE 95 MG/DL (65-110); POTASSIUM 3.9 MEQ/L (3.6-5); SODIUM 144 MEQ/L (134-144); TOTAL PROTEIN 7.1 G/DL (6.3-8.2)
[2016-06-29] MEDS ORDERED: ALBU2.5V7 INH (11:30)
[2016-06-29] MEDS ORDERED: FLUO40CA49 PO (11:30)
[2016-06-29] MEDS ORDERED: LISI1TAB13 PO (11:30)
[2016-06-29] MEDS ORDERED: ATOR20TA59 PO (11:30)
[2016-06-29 11:37] LABS: PROBNP 145 PG/ML (0-175)
[2016-06-29] MEDS ORDERED: LEVALBUTEROL INH.SOLN. 1.25mg/3ml Neb. AEROSOL ONE (11:45)
[2016-06-29] MEDS ORDERED: BENZONATATE 100 MG CAPSULE PO ONE (11:45)
--- NOTE | 2016-06-29 11:49 | NUR ---
Flu Call placed to Dr. Cohen' nurse who reports that Pt's Flu swab was negative for both Flu A&B.
--- NOTE | 2016-06-29 11:49 | DI ---
Indication: ITS.REASON: cough shortness of air wheezing COPD CHEST, PA LATERAL: Comparison: 01/20/2009 Technique: PA and lateral chest Findings: Patient shows normal heart, mediastinum and central vascularity. Lungs showed no focal parenchymal consolidation, mass or pleural effusion. No acute bony findings appreciated. Impression: Unremarkable two-view chest. .
--- NOTE | 2016-06-29 11:50 | NUR ---
MED TESSALON PERLES GIVEN FOR COUGH.
--- NOTE | 2016-06-29 12:30 | NUR ---
RT IN ROOM TO ADMINISTER BREATHING TX
--- NOTE | 2016-06-29 13:45 | NUR ---
REPORT CALLED AND GIVEN TO BLOSSOM QUINTANA
--- NOTE | 2016-06-29 13:50 | NUR ---
ADMIT TRANSFERED TO ROOM 158 BY WHEELCHAIR AT THIS TIME O2 AT 2 LITERS PER NC
--- OUTSIDE RECORDS SUMMARY | 2016-06-29 13:55 | XMS REPORT | Continuity of Care Document ---
Author Author [facility] Organization [facility] Address Unknown Phone Unavailable Allergies Medications Problems Procedures Results Encounters ACCT No. Visit Date/Time Discharge Status Pt. Type Provider Facility Loc./Unit Complaint [id number] 06/24/2013 08:46:00 06/24/2013 23 :59:59 CLS Outpatient [id number] 05/27/2013 13:54:00 05/27/2013 23 :59:59 CLS Outpatient
[2016-06-29 13:58] VITALS: Ht 152.5 cm; Wt 85.8 kg
--- NOTE | 2016-06-29 14:00 | NUR ---
ADMISSION PT ADMITTED TO ROOM 158 VIA WHEELCHAIR FROM ED AT 1350. PT IS A&OX3, UP WITH ONE ASSIST, STAND BY. PT SHOWS SIGNS OF SOA, PT IS ON 2L O2 NC. PT DENIES PAIN AND N/V. PT ORIENTED TO BED AND HOSPITAL ROOM. PT IS ON A REGULAR DIET AND STATES SHE IS READY TO EAT. GAVE MENU AND PHONE TO PT. AWAITING FURTHER ORDERS. ALARMS IN USE AND CALL LIGHT WITH IN REACH.
[2016-06-29 14:08] VITALS: BP 115/65; PULSE 90; RESP 28; TEMP 97.5; O2SAT 97
[2016-06-29] MEDS ORDERED: LORAZEPAM 2 MG/ML INJECTION IV PRN (14:15)
--- NOTE | 2016-06-29 14:30 | HPPDOC ---
MARY KAY SERRA V STOCK CRANE OPERATOR 06/29/16 1418: HPI - Adult Date DATE: 06/29/16 TIME: 14:07 General Chief Complaint: Dyspnea, COPD exacerbation History of Present Illness Charlotte is a 55 yr old female who was seen at PCP Dr Nemo Schmitt today for dyspnea. She was then sent to [facility] [place] for further evaluation and treatment. She was found to be hypoxic with room air sats of 89%. WBC count 3.9, Hgb 12.7, HCT 37.5, Plt 168. Sodium 144, Potassium 3.9, BUN 11, Field Sales Executive 0.5, AST 40, ALT 47. Troponin 0.012, ProBnp 145. D-Dimer is 211. She was afebrile at 98.6, Pulse in the 70's, and BP 177/90. She remained tachypneic 34-40. She was placed on 2 liters of oxygen. Chest xray was unremarkable. She was given DuoNeb x3, Xopenex , Tessalon Perles, and IV Solu-medrol however she continued to have significant dyspnea and wheezing. The hospitalist services were contacted and accepted patient for outpatinet admission for further treatment. It is expected that her stay will be less than then 2 overnights. Charlotte is seen on admission. She is alert and orientated and displays significant respiratory effort in transfer from w/c to bed as well as conversational dyspnea. She reports a known history of COPD and she is a daily smoker. Reports over the past 3 days she continues to have increasing shortness of breath. Past Medical History Past Medical History COPD Hypercholesterolemia Hypertension Psoriasis Surgical History Patient's Surgical History: 3. Hysterectomy Left shoulder surgery Thyroidectomy. Cholecystectomy Current Medications Home Meds Reported Medications Fluoxetine HCl (Fluoxetine HCl) 40 Mg Capsule, 40 MG PO DAILY 06/29/16 Atorvastatin Calcium (Atorvastatin Calcium) 20 Mg Tablet, 20 MG PO HS 06/29/16 Albuterol Sulfate (Albuterol Sulfate) 2.5 Mg/3 Ml Vial.neb, 1 VIAL INH PRN 06/29/16 Lisinopril/Hydrochlorothiazide (Lisinopril-Hctz 20-25 mg Tab) 1 Each Tablet, 1 TAB PO DAILY 06/29/16 Allergies: Coded Allergies: Sulfa (Sulfonamide Antibiotics) (Verified Allergy, Intermediate, WHEEZE, HIVES, 08/13/14) Family History Family History: Father-diabetes, CVA, hypertension Mother-hypertension, CVA Social History Smoking Status: Current every day smoker Substance Use Type: does not use Alcohol Intake: none Marital Status: Single Housing: house Current Occupational Status: employed ([employer]) Advance Directives: No DPOA for Healthcare Only Social History Comments Primary care provider, Dr. Nemo Schmitt at [facility] Review of Systems Cardiovascular dyspnea on exertion, paroxysmal nocturnal dysp Pulmonary Respiratory: cough, dyspnea, tachypnea Integumentary Skin: rash (psoriasis to Right lower extremity- chronic) All Other Systems All Other Systems: Reviewed (remainder of 10-point ROS Neg.) Physical Exam General General Nourishment: well nourished, well developed Vital Signs Vital Signs Date Time Temp Pulse Resp B/P Pulse Ox O2 Delivery O2 Flow Rate FiO2 06/29/16 13:25 89 Nasal Cannula 2.00 95 06/29/16 13:25 95 28 06/29/16 10:40 98.6 177/90 Height (Feet): 5 Height (Inches): 0.05 Eyes Brief: FOUND: EOMI, PERRL Respiratory Brief: FOUND: wheezes Comments Tightness throughout with moderate wheezing Cardiovascular (brief) Cardiac Brief: FOUND: regular rate, regular rhythm, NOT FOUND: murmur, pedal edema Abdomen (brief) Abdominal Brief: FOUND: BS normo active x4, soft, NOT FOUND: distended, tender Integumentary (brief) Integumentary Brief: FOUND: dry, pink, warm Comments Psoriasis lesions to right lower extremity Neurologic (brief) Neurological Brief: FOUND: cranial 2-12 intact Neurologic RN Documented GCS Eye Opening: Verbal: Motor: Total: Psychiatric (brief) FOUND: alert, attentive, normal affect, oriented Laboratory Laboratory Tests Test 06/29/16 11:07 White Blood Count 3.9T/MM3 Red Blood Count 4.29M/MM3 Hemoglobin 12.7GM/DL Hematocrit 37.5% Mean Corpuscular Volume 87.4UM3 Mean Corpuscular Hemoglobin 29.6UUG Mean Corpuscular Hemoglobin Concent 33.9GM/DL RDW Standard Deviation 42.7FL Platelet Count 168T/MM3 Mean Platelet Volume 10.9UM3 Immature Granulocyte % (Auto) 0.3% Neutrophils (%) (Auto) 52.1% Lymphocytes (%) (Auto) 39.3% Monocytes (%) (Auto) 6.5% Eosinophils (%) (Auto) 1.3% Basophils (%) (Auto) 0.5% Absolute Immature Granulocyte (auto 0.01T/MM3 Absolute Neutrophils (auto) 2.0T/MM3 Absolute Lymphocytes (auto) 1.5T/MM3 Absolute Monocytes (auto) 0.3T/MM3 Absolute Eosinophils (auto) 0.1T/MM3 Absolute Basophils (auto) 0.0T/MM3 D-Dimer 211NG/ML Turbidity < 20 Sodium Level 144MEQ/L Potassium Level 3.9MEQ/L Chloride Level 110MEQ/L Carbon Dioxide Level 24MEQ/L Anion Gap 10MEQ/L Blood Urea Nitrogen 11.0MG/DL Creatinine 0.5MG/DL Glomerular Filtration Rate Calc 129 BUN/Creatinine Ratio 22RATIO Glucose Level 95MG/DL Calculated Osmolality 276MOSM/KG Calcium Level 9.5MG/DL Total Bilirubin 0.50MG/DL Icterus Index < 2 Aspartate Amino Transf (AST/SGOT) 40U/L Alanine Aminotransferase (ALT/SGPT) 47U/L Alkaline Phosphatase 95U/L Troponin I < 0.012ng/ml ZL-Gap-T-Type Natriuretic Peptide 145PG/ML Total Protein 7.1G/DL Albumin 3.8G/DL Globulin 3.3G/DL Albumin/Globulin Ratio 1.2RATIO Chemistry Specimen Hemolysis < 15 Assessment & Plan Problems: (1) COPD exacerbation Status: Acute (2) Acute respiratory failure with hypoxia Status: Acute (3) Hypertension Status: Chronic Qualifiers: Hypertension type: essential hypertension Qualified Codes: I10 - Essential (primary) hypertension (4) Hypercholesterolemia Status: Chronic (5) Tobacco dependence Status: Chronic (6) History of thyroidectomy Status: Resolved Plan/Intensity of Service Admit patient to outpatient status under the care of Dr. Deutsch for COPD exacerbation, mild hypoxia Will continue with scheduled breathing treatments including DuoNeb 4 times a day and Pulmicort twice a day. Patient received Solu-Medrol 125 milligrams IV while in the emergency room. We will continue this every 6 hours for pulmonary inflammation. Tessalon Perles available as needed for coughing, and Mucinex BID Will obtain a viral respiratory panel to rule out viral illness. Up in room with assistance. Patient may have regular diet. Encourage tobacco cessation SCDs to bilateral lower extremity for DVT prophylaxis. Will discuss further orders and plan of care with attending, Dr. Deutsch. At time of discharge medical care will return to her primary care provider, Dr. Nemo Schmitt DVT Prophylaxis: SCD'S Code Status Full Code Hospital Course Summary Disclaimer The hospital course summary below is not to be considered part of the above Progress Note. Hospital Course Summary 06/29- Admission Admit patient to outpatient status under the care of Dr. Deutsch for COPD exacerbation, mild hypoxia Will continue with scheduled breathing treatments including DuoNeb 4 times a day and Pulmicort twice a day. Patient received Solu-Medrol 125 milligrams IV while in the emergency room. We will continue this every 6 hours for pulmonary inflammation. Tessalon Perles available as needed for coughing, and Mucinex BID Will obtain a viral respiratory panel to rule out viral illness. Up in room with assistance. Encourage tobacco cessation Patient may have regular diet. SCDs to bilateral lower extremity for DVT prophylaxis. Will discuss further orders and plan of care with attending, Dr. Deutsch. At time of discharge medical care will return to her primary care provider, MARIA ALEJANDRA Mtz MD 06/29/16 4047: Past Medical History Current Medications Home Meds Reported Medications Fluoxetine HCl (Fluoxetine HCl) 40 Mg Capsule, 40 MG PO DAILY 06/29/16 Atorvastatin Calcium (Atorvastatin Calcium) 20 Mg Tablet, 20 MG PO HS 06/29/16 Albuterol Sulfate (Albuterol Sulfate) 2.5 Mg/3 Ml Vial.neb, 1 VIAL INH PRN 06/29/16 Lisinopril/Hydrochlorothiazide (Lisinopril-Hctz 20-25 mg Tab) 1 Each Tablet, 1 TAB PO DAILY 06/29/16 Allergies: Coded Allergies: Sulfa (Sulfonamide Antibiotics) (Verified Allergy, Intermediate, WHEEZE, HIVES, 08/13/14) Assessment & Plan Problems: (1) Type B influenza Status: Acute (2) COPD exacerbation Status: Acute (3) Acute respiratory failure with hypoxia Status: Acute (4) Hypertension Status: Chronic Qualifiers: Hypertension type: essential hypertension Qualified Codes: I10 - Essential (primary) hypertension (5) Hypercholesterolemia Status: Chronic (6) Tobacco dependence Status: Chronic (7) History of thyroidectomy Status: Resolved (8) Obesity (BMI 30-39.9) Status: Chronic Plan/Intensity of Service Have independently interviewed and examined pt. Chart reviewed. Case discussed with Dr Skinner and my STOCK CRANE OPERATOR. Care plan developed with my supervision; agree with above. Feeling sick since Friday 06/23. Developed increased cough and congestion. Cough non-productive, feels like something needs to come out of chest but just can't mobilize. More tire and fatigued. Symptoms persistent. Smoking, but report had to stop due to this acute process. Increased sinus congestion and some drainage. No nausea or vomiting. Appetite stable. Bowels stable. No urinary symptoms. Lungs: decreased and tight. Very congested. Diffuse wheezes. Increased cough with breathing and force expiration. CV: distant, regular MSE: awake alert appropriate Plan:OBS. Tamiflu 75mg BID x 10 doses for flu treatment. IV Solu-Medrol 125mg IV q 6 hours to decrease pulmonary reactivity. Neb Treatments of DuoNeb and budesonide. Mucinex DM routinely. Phenergan with Codeine prn severe cough. Acapella to help loosen secretions. Encourage tobacco cessation - Informational package provided. Supplemental O2, weaning as able. Nasal saline for nasal congestion. Continue home medications. SCD for DVT prevention. MARY KAY SERRA APRN Jun 29, 2016 14:18 MARIA ALEJANDRA DEUTSCH MD Jun 29, 2016 17:49
[2016-06-29 15:34] VITALS: O2SAT 98
[2016-06-29] MEDS: ALBUTEROL/IPRATROPIUM INHAL. 2.5mg-0.5mg/3ml Neb. AEROSOL SCH ×2 (15:34→20:37)
[2016-06-29 15:50] VITALS: PULSE 79; RESP 24
[2016-06-29] MEDS: BENZONATATE 200 MG CAPSULE PO SCH ×2 (15:59→21:26)
[2016-06-29] MEDS ORDERED: NITROGLYCERIN 0.4 MG SUBLINGUAL TABLET SL PRN (17:30)
[2016-06-29] MEDS ORDERED: MAG-AL + SIM LIQUID 30 ML UDC PO PRN (17:30)
[2016-06-29] MEDS ORDERED: ACETAMINOPHEN 325 MG TABLET PO PRN (17:30)
[2016-06-29] MEDS ORDERED: PRN ORDERS MC (17:30)
[2016-06-29] MEDS ORDERED: ONDANSETRON 4mg/2ml INJECTION IV PRN (17:30)
[2016-06-29] MEDS ORDERED: MILK OF MAGNESIA 30 ML SUSP PO PRN (17:30)
[2016-06-29] MEDS ORDERED: BISACODYL 10 MG SUPPOSITORY RECTALLY PRN (17:30)
--- NOTE | 2016-06-29 18:30 | NUR ---
SHIFT SUMMARY PT ALERT AND ORIENTATED X3. O2 AT 2L, UP X1, STAND BY. PATIENT REPORTS BEING SOA, DENIES CHEST PAIN. SCDS IN PLACE, IN ROOM. PT IS ON DROPLET PRECAUTIONS FOR POSITIVE CULTURE OF INFLUENZA B. PT EDUCATED ABOUT PRECAUTIONS AND WAS GIVEN MASK. CALL LIGHT WITHIN REACH, BED ALARM ON AT ALL TIMES.
[2016-06-29 20:00] VITALS: PULSE 82; RESP 26
[2016-06-29 20:37] VITALS: O2SAT 98
[2016-06-29] MEDS: BUDESONIDE INH.SOLN. 0.5mg/2ml NEB AEROSOL SCH (20:37)
[2016-06-29] MEDS: SALINE NASAL SPRAY 45ml EA NOSTRIL SCH ×2 (21:00→21:26)
[2016-06-29] MEDS ORDERED: GUAIFENESIN LA 600 MG TABLET PO SCH (21:00)
[2016-06-29] MEDS: OSELTAMIVIR 75 MG CAPSULE PO SCH (21:26)
[2016-06-29] MEDS: ATORVASTATIN 20 MG TABLET PO SCH (21:26)
[2016-06-29] MEDS: GUAIFENESIN DM 600mg/30mg TABLET PO SCH (21:27)
[2016-06-30] VITALS (8 sets, daily range): BP systolic 146–168; BP diastolic 69–77; PULSE 85–87; RESP 20–28; TEMP 97.9–98.9; O2SAT 96–97
[2016-06-30 05:06] LABS: HCT - HEMATOCRIT 36.5 % (36-46); HGB - HEMOGLOBIN 12.1 GM/DL (12-16); IMMATURE GRANULOCYTE # (AUTO) 0.01 T/MM3 (0.00-0.03); IMMATURE GRANULOCYTE % (AUTO) 0.3 % (0.0-0.5); LYMPHOCYTES # (AUTO) 0.7 T/MM3 (1-4.8); LYMPHOCYTES % (AUTO) 22.2 % (23-45); MEAN CORPUSCULAR HGB 29.1 UUG (26-34); MEAN CORPUSCULAR HGB CONC(MCHC 33.2 GM/DL (31-37); MEAN CORPUSCULAR VOLUME 87.7 UM3 (80-100); MEAN PLATELET VOLUME 11.1 UM3 (9.4-12.4); MONOCYTES # (AUTO) 0.1 T/MM3 (0-0.8); MONOCYTES % (AUTO) 2.8 % (0-9.0); NEUTROPHILS #(AUTO)-ABSOLUTE 2.4 T/MM3 (1.8-7.7); NEUTROPHILS % (AUTO) 74.7 % (33-66); RED BLOOD COUNT 4.16 M/MM3 (4.00-5.20); WBC - WHITE BLOOD COUNT 3.2 T/MM3 (4.5-11.0)
[2016-06-30 05:20] LABS: ANION GAP 15 MEQ/L (5-15); BUN/CREATININE RATIO 32 RATIO (6-26); CHLORIDE 109 MEQ/L (98-107); CO2 - CARBON DIOXIDE 21 MEQ/L (22-30); CREATININE 0.5 MG/DL (0.7-1.2); GLOMERULAR FILTRATION RATE 129; GLUCOSE 213 MG/DL (65-110); POTASSIUM 3.9 MEQ/L (3.6-5); SODIUM 145 MEQ/L (134-144)
--- NOTE | 2016-06-30 06:44 | NUR ---
Shift Summary: Pt has rested well throughout the night. Pt remains on 2L of O2 and states she feels "so much better this am." Pt is IVL. Pt is up with standby assist and is steady on feet. Pt denies pain. Pt c/o cough at times and given scheduled meds as ordered. Pt denies need for further meds. Pt resting in bed at this time with call light within reach. Good urinary output during the shift. Will continue to monitor.
[2016-06-30] MEDS: BENZONATATE 200 MG CAPSULE PO SCH ×3 (08:49→22:14)
[2016-06-30] MEDS: LISINOPRIL/HCTZ 20mg/25mg TABLET PO SCH (08:49)
[2016-06-30] MEDS: OSELTAMIVIR 75 MG CAPSULE PO SCH ×2 (08:49→22:14)
[2016-06-30] MEDS: FLUOXETINE 20 MG CAPSULE PO SCH (08:50)
[2016-06-30] MEDS: GUAIFENESIN DM 600mg/30mg TABLET PO SCH ×2 (08:50→22:14)
[2016-06-30] MEDS: SALINE NASAL SPRAY 45ml EA NOSTRIL SCH ×4 (08:51→22:13)
[2016-06-30] MEDS: BUDESONIDE INH.SOLN. 0.5mg/2ml NEB AEROSOL SCH ×2 (09:42→20:17)
[2016-06-30] MEDS: ALBUTEROL/IPRATROPIUM INHAL. 2.5mg-0.5mg/3ml Neb. AEROSOL SCH ×4 (09:42→20:17)
[2016-06-30] MEDS ORDERED: NICOTINE 21 MG PATCH TD PRN (12:00)
[2016-06-30] MEDS ORDERED: PredniSONE 10 MG TABLET PO ONE (12:00)
[2016-06-30] MEDS ORDERED: NICOTINE PATCH REMOVAL TD PRN (12:45)
--- NOTE | 2016-06-30 13:48 | PNPDOC ---
Subjective Date DATE: 06/30/16 TIME: 13:39 Subjective The patient states that she feels better than yesterday but is still short of breath. She continues to have a nonproductive cough. She has a burning type pain in her chest but only when she coughs. She denies any lightheadedness. She denies any nausea or vomiting. She is eating and drinking without difficulty. She wants to quit smoking and is very motivated. She does not want a nicotine patch at this time but would like one ordered when necessary. Objective Vital Signs Vital signs Vital Signs Date Time Temp Pulse Resp B/P Pulse Ox O2 Delivery O2 Flow Rate FiO2 06/30/16 12:50 82 06/30/16 12:46 16 97 06/30/16 07:33 98.9 146/76 Nasal Cannula 2.00 On my exam respiratory rate is 28 GEN-alert, tachypnea, able to speak for or 5 word sentences and then needs to stop to breathe HEENT-sclera anicteric, oropharynx is moist NECK-supple CV-regular rate and rhythm CHEST-loud wheezing throughout the lungs ABD-soft, nontender with positive bowel sounds -no Tong EXT-no edema NEURO-no focal deficits SKIN-no rashes Height (Feet): 5 Height (Inches): 0.05 Weight (Kilograms): 85.300 Laboratory Laboratory Laboratory Tests 06/29/16 11:07 06/30/16 04:49 Laboratory Tests 06/29/16 11:07 06/30/16 04:49 Assessment & Plan Problems: (1) Type B influenza Status: Acute (2) COPD exacerbation Status: Acute (3) Acute respiratory failure with hypoxia Status: Resolved Assessment & Plan: The patient is no longer hypoxic but is still tachypneic and dyspneic (4) Hypertension Status: Chronic Qualifiers: Hypertension type: essential hypertension Qualified Codes: I10 - Essential (primary) hypertension (5) Hypercholesterolemia Status: Chronic (6) Tobacco dependence Status: Chronic (7) History of thyroidectomy Status: Resolved (8) Obesity (BMI 30-39.9) Status: Chronic (9) Steroid-induced hyperglycemia Status: Acute Assessment & Plan: Change to ADA diet (10) Leukopenia Status: Acute Assessment 06/30/2016 The patient has improved since yesterday but is still tachypnea with respiratory rate of 28 on my exam and continues to have dyspnea. Lung sounds reveal loud wheezing throughout. I do not think she is stable for dismissal to home at this time. Will change to inpatient status. Change steroids to oral and monitor closely. Continue breathing treatments. Continue Tamiflu for influenza. Add when necessary nicotine patch if needed. Change to ADA diet for hyperglycemia which is secondary to steroids. Encourage oral fluids. Discussed with case management. Possible discharge in the next 1-2 days if the patient continues to show improvement. Plan/Intensity of Service Have independently interviewed and examined pt. Chart reviewed. Case discussed with Dr Skinner and my QUOTATION CHECKER. Care plan developed with my supervision; agree with above. Feeling sick since Friday 06/23. Developed increased cough and congestion. Cough non-productive, feels like something needs to come out of chest but just can't mobilize. More tire and fatigued. Symptoms persistent. Smoking, but report had to stop due to this acute process. Increased sinus congestion and some drainage. No nausea or vomiting. Appetite stable. Bowels stable. No urinary symptoms. Lungs: decreased and tight. Very congested. Diffuse wheezes. Increased cough with breathing and force expiration. CV: distant, regular MSE: awake alert appropriate Plan:OBS. Tamiflu 75mg BID x 10 doses for flu treatment. IV Solu-Medrol 125mg IV q 6 hours to decrease pulmonary reactivity. Neb Treatments of DuoNeb and budesonide. Mucinex DM routinely. Phenergan with Codeine prn severe cough. Acapella to help loosen secretions. Encourage tobacco cessation - Informational package provided. Supplemental O2, weaning as able. Nasal saline for nasal congestion. Continue home medications. SCD for DVT prevention. DVT Prophylaxis: SCD'S Code Status Full Code Hospital Course Summary Disclaimer The hospital course summary below is not to be considered part of the above Progress Note. Hospital Course Summary 06/29- Admission Admit patient to outpatient status under the care of Dr. Deutsch for COPD exacerbation, mild hypoxia Will continue with scheduled breathing treatments including DuoNeb 4 times a day and Pulmicort twice a day. Patient received Solu-Medrol 125 milligrams IV while in the emergency room. We will continue this every 6 hours for pulmonary inflammation. Tessalon Perles available as needed for coughing, and Mucinex BID Will obtain a viral respiratory panel to rule out viral illness. Up in room with assistance. Encourage tobacco cessation Patient may have regular diet. SCDs to bilateral lower extremity for DVT prophylaxis. Will discuss further orders and plan of care with attending, Dr. Deutsch. At time of discharge medical care will return to her primary care provider, Dr. Nemo Schmitt Have independently interviewed and examined pt. Chart reviewed. Case discussed with Dr Skinner and my QUOTATION CHECKER. Care plan developed with my supervision; agree with above. Feeling sick since Friday 06/23. Developed increased cough and congestion. Cough non-productive, feels like something needs to come out of chest but just can't mobilize. More tire and fatigued. Symptoms persistent. Smoking, but report had to stop due to this acute process. Increased sinus congestion and some drainage. No nausea or vomiting. Appetite stable. Bowels stable. No urinary symptoms. Lungs: decreased and tight. Very congested. Diffuse wheezes. Increased cough with breathing and force expiration. CV: distant, regular MSE: awake alert appropriate Plan:OBS. Tamiflu 75mg BID x 10 doses for flu treatment. IV Solu-Medrol 125mg IV q 6 hours to decrease pulmonary reactivity. Neb Treatments of DuoNeb and budesonide. Mucinex DM routinely. Phenergan with Codeine prn severe cough. Acapella to help loosen secretions. Encourage tobacco cessation - Informational package provided. Supplemental O2, weaning as able. Nasal saline for nasal congestion. Continue home medications. SCD for DVT prevention. MARIANO OLIVERA MD Jun 30, 2016 13:42
--- NOTE | 2016-06-30 14:32 | NUR ---
MARY CM IN TO VISIT WITH PT. SHE IS ALERT AND ORIENTED. SHE PLANS TO RETURN HOME. SHE DENIES DC NEEDS. SHE REPORTS THAT SHE HAS A NEBULIZER AT HOME BUT DOES NOT USE HOME O2. LACE SCORE IS 9. PT IS GIVEN CM CONTACT INFORMATION. Addendum: 06/30/16 at 1434 by NELLIE PURCELL RN Amended: Links added.
--- NOTE | 2016-06-30 19:27 | NUR ---
Shift Summary Patient alert and oriented x3. VSS. Weaned from 2L NC to RA today, maintaining oxygen saturation >90%. Up ad juan alberto in room. Ambulated in halls this afternoon. Patient has had adequate urine output today, no BM. IVL right hand, flushed well. Patient has had adequate oral intake. No strong cough, no sputum. Maintained on droplet precautions for influenza B.
[2016-06-30] MEDS: ATORVASTATIN 20 MG TABLET PO SCH (22:15)
[2016-07-01] VITALS: TEMP 97.4
--- NOTE | 2016-07-01 06:13 | NUR ---
SUMMARY PT ALERT AND ORIENTED. AD ADILENE IN ROOM. PT SLEPT ALL NIGHT, MINIMAL COUGHING NOTED. IV LOCKED. NO COMPLAINTS THIS SHIFT.
[2016-07-01] MEDS: BUDESONIDE INH.SOLN. 0.5mg/2ml NEB AEROSOL SCH (06:41)
[2016-07-01] MEDS: ALBUTEROL/IPRATROPIUM INHAL. 2.5mg-0.5mg/3ml Neb. AEROSOL SCH ×3 (06:41→15:07)
[2016-07-01 06:42] VITALS: O2SAT 97
[2016-07-01] MEDS: PROMETHAZINE/CODEINE ORAL SYRUP PO PRN ×2 (07:21→14:49)
[2016-07-01 07:22] VITALS: BP 166/91; PULSE 90; RESP 18; TEMP 98; O2SAT 93
[2016-07-01] MEDS ORDERED: PredniSONE 10 MG TABLET PO SCH (08:00)
[2016-07-01] MEDS: FLUOXETINE 20 MG CAPSULE PO SCH (08:14)
[2016-07-01] MEDS: OSELTAMIVIR 75 MG CAPSULE PO SCH (08:14)
[2016-07-01] MEDS: LISINOPRIL/HCTZ 20mg/25mg TABLET PO SCH (08:14)
[2016-07-01] MEDS: GUAIFENESIN DM 600mg/30mg TABLET PO SCH (08:14)
[2016-07-01] MEDS: BENZONATATE 200 MG CAPSULE PO SCH ×2 (08:14→14:49)
[2016-07-01] MEDS: SALINE NASAL SPRAY 45ml EA NOSTRIL SCH ×2 (08:15→13:03)
[2016-07-01] MEDS ORDERED: ACET-2321 PO (15:38)
[2016-07-01] MEDS ORDERED: BENZ200C36 PO (15:38)
[2016-07-01] MEDS ORDERED: OSEL75CA PO (15:38)
[2016-07-01] MEDS ORDERED: PRED10TA PO (15:38)
--- NOTE | 2016-07-01 15:47 | DSPDOC ---
General Date Date DATE: 07/01/16 TIME: 15:[address] Magda Crystal Admitting Physician Dr. Magda Crystal Consulting Physician Admitting Diagnosis COPD exacerbation Discharge Diagnosis Influenza B COPD exacerbation Acute hypoxic respiratory failure Steroid-induced hyperglycemia Tobacco dependence Leukopenia Procedures none Laboratory Laboratory Tests Test 06/30/16 04:49 White Blood Count 3.2T/MM3 (4.5-11.0) Red Blood Count 4.16M/MM3 (4.00-5.20) Hemoglobin 12.1GM/DL (12-16) Hematocrit 36.5% (36-46) Mean Corpuscular Volume 87.7UM3 (80-100) Mean Corpuscular Hemoglobin 29.1UUG (26-34) Mean Corpuscular Hemoglobin Concent 33.2GM/DL (31-37) RDW Standard Deviation 42.9FL (36.9-50.2) Platelet Count 159T/MM3 (130-400) Mean Platelet Volume 11.1UM3 (9.4-12.4) Immature Granulocyte % (Auto) 0.3% (0.0-0.5) Neutrophils (%) (Auto) 74.7% (33-66) Lymphocytes (%) (Auto) 22.2% (23-45) Monocytes (%) (Auto) 2.8% (0-9.0) Eosinophils (%) (Auto) 0.0% (0-4) Basophils (%) (Auto) 0.0% (0-2) Absolute Immature Granulocyte (auto 0.01T/MM3 (0.00-0.03) Absolute Neutrophils (auto) 2.4T/MM3 (1.8-7.7) Absolute Lymphocytes (auto) 0.7T/MM3 (1-4.8) Absolute Monocytes (auto) 0.1T/MM3 (0-0.8) Absolute Eosinophils (auto) 0.0T/MM3 (0-0.5) Absolute Basophils (auto) 0.0T/MM3 (0-0.2) Turbidity < 20 (0-20) Sodium Level 145MEQ/L (134-144) Potassium Level 3.9MEQ/L (3.6-5) Chloride Level 109MEQ/L (98-107) Carbon Dioxide Level 21MEQ/L (22-30) Anion Gap 15MEQ/L (5-15) Blood Urea Nitrogen 16.0MG/DL (7-17) Creatinine 0.5MG/DL (0.7-1.2) Glomerular Filtration Rate Calc 129 BUN/Creatinine Ratio 32RATIO (6-26) Glucose Level 213MG/DL (65-110) Calculated Osmolality 286MOSM/KG (261-280) Calcium Level 9.0MG/DL (8.4-10.2) Icterus Index < 2 (0-7) Chemistry Specimen Hemolysis < 15 (0-25) Radiology Chest x-ray on 06/29/2016 shows unremarkable 2 view of chest History of Present Illness Charlotte is a 55 yr old female who was seen at PCP Dr Nemo Schmitt today for dyspnea. She was then sent to [facility] emergency room for further evaluation and treatment. She was found to be hypoxic with room air sats of 89%. WBC count 3.9, Hgb 12.7, HCT 37.5, Plt 168. Sodium 144, Potassium 3.9, BUN 11, Molecular Biology Scientist 0.5, AST 40, ALT 47. Troponin 0.012, ProBnp 145. D-Dimer is 211. She was afebrile at 98.6, Pulse in the 70's, and BP 177/90. She remained tachypneic 34-40. She was placed on 2 liters of oxygen. Chest xray was unremarkable. She was given DuoNeb x3, Xopenex , Tessalon Perles, and IV Solu-medrol however she continued to have significant dyspnea and wheezing. The hospitalist services were contacted and accepted patient for outpatinet admission for further treatment. It is expected that her stay will be less than then 2 overnights. Charlotte is seen on admission. She is alert and orientated and displays significant respiratory effort in transfer from w/c to bed as well as conversational dyspnea. She reports a known history of COPD and she is a daily smoker. Reports over the past 3 days she continues to have increasing shortness of breath. Hospital Course 06/29- Admission Admit patient to outpatient status under the care of Dr. Deutsch for COPD exacerbation, mild hypoxia Will continue with scheduled breathing treatments including DuoNeb 4 times a day and Pulmicort twice a day. Patient received Solu-Medrol 125 milligrams IV while in the emergency room. We will continue this every 6 hours for pulmonary inflammation. Tessalon Perles available as needed for coughing, and Mucinex BID Will obtain a viral respiratory panel to rule out viral illness. Up in room with assistance. Encourage tobacco cessation Patient may have regular diet. SCDs to bilateral lower extremity for DVT prophylaxis. Will discuss further orders and plan of care with attending, Dr. Deutsch. At time of discharge medical care will return to her primary care provider, Dr. Nemo Schmitt Have independently interviewed and examined pt. Chart reviewed. Case discussed with Dr Skinner and my WHOLESALE DIAMOND BROKER. Care plan developed with my supervision; agree with above. Feeling sick since Friday 06/23. Developed increased cough and congestion. Cough non-productive, feels like something needs to come out of chest but just can't mobilize. More tire and fatigued. Symptoms persistent. Smoking, but report had to stop due to this acute process. Increased sinus congestion and some drainage. No nausea or vomiting. Appetite stable. Bowels stable. No urinary symptoms. Lungs: decreased and tight. Very congested. Diffuse wheezes. Increased cough with breathing and force expiration. CV: distant, regular MSE: awake alert appropriate Plan:OBS. Tamiflu 75mg BID x 10 doses for flu treatment. IV Solu-Medrol 125mg IV q 6 hours to decrease pulmonary reactivity. Neb Treatments of DuoNeb and budesonide. Mucinex DM routinely. Phenergan with Codeine prn severe cough. Acapella to help loosen secretions. Encourage tobacco cessation - Informational package provided. Supplemental O2, weaning as able. Nasal saline for nasal congestion. Continue home medications. SCD for DVT prevention. 06/30/2016 The patient has improved since yesterday but is still tachypnea with respiratory rate of 28 on my exam and continues to have dyspnea. Lung sounds reveal loud wheezing throughout. I do not think she is stable for dismissal to home at this time. Will change to inpatient status. Change steroids to oral and monitor closely. Continue breathing treatments. Continue Tamiflu for influenza. Add when necessary nicotine patch if needed. Change to ADA diet for hyperglycemia which is secondary to steroids. Encourage oral fluids. Discussed with case management. Possible discharge in the next 1-2 days if the patient continues to show improvement. 07/01/2016 Patient is showing improvement again today. She states she is breathing better. She walked down the hallways with the mask on without difficulties. She continues on room air. Respiratory rate is down to 20. She is eating and drinking well. She was changed to by mouth steroids yesterday without difficulties. On exam she has expiratory wheezes bilaterally but decreased from yesterday. She does not appear dyspneic and does not have conversational dyspnea today. She has been afebrile. She appears stable for dismissal to home. Cardiovascular reveals a regular rate and rhythm. Abdomen is soft and nontender. We'll dismiss to home in stable condition. She is to follow-up with Dr. Cohen next week. She is to start a nicotine patch if needed to help her with smoking cessation. She said also call the [place] tobacco quit line for help in quitting smoking. She was notified that if her symptoms should worsen again such as developing fever, worsening cough, increased shortness of breath, lethargy or any other concerning symptoms she should see her doctor or return to the emergency room. Greater than 30 minutes of time was spent on dismissal today. Problems: (1) Type B influenza Status: Acute (2) COPD exacerbation Status: Acute (3) Acute respiratory failure with hypoxia Status: Resolved Assessment & Plan: The patient is no longer hypoxic but is still tachypneic and dyspneic (4) Hypertension Status: Chronic (5) Hypercholesterolemia Status: Chronic (6) Tobacco dependence Status: Chronic (7) History of thyroidectomy Status: Resolved (8) Obesity (BMI 30-39.9) Status: Chronic (9) Steroid-induced hyperglycemia Status: Acute Assessment & Plan: Change to ADA diet (10) Leukopenia Status: Acute Code Status Full Code Home Meds Active Scripts Prednisone (Prednisone) 10 Mg Tablet, 10 MG PO WB, #15 TAB Take 3 tablets, by mouth, once a day with breakfast for 2 days, then 2 tablets by mouth once a day for 3 days, then 1 tablet daily by mouth once a day for 3 days, then stop. Prov:MAGDA CRYSTAL MD 07/01/16 Benzonatate (Benzonatate) 200 Mg Capsule, 200 MG PO TID, #10 CAP Prov:MAGDA CRYSTAL MD 07/01/16 Acetaminophen (Tylenol) 325 Mg Tablet, 325-650 MG PO Q5H Y for DISCOMFORT, #30 TAB Prov:MAGDA CRYSTAL MD 07/01/16 Oseltamivir Phosphate (Tamiflu) 75 Mg Capsule, 75 MG PO BID, #6 CAP Prov:MAGDA CRYSTAL MD 07/01/16 Reported Medications Fluoxetine HCl (Fluoxetine HCl) 40 Mg Capsule, 40 MG PO DAILY 06/29/16 Atorvastatin Calcium (Atorvastatin Calcium) 20 Mg Tablet, 20 MG PO HS 06/29/16 Albuterol Sulfate (Albuterol Sulfate) 2.5 Mg/3 Ml Vial.neb, 1 VIAL INH PRN 06/29/16 Lisinopril/Hydrochlorothiazide (Lisinopril-Hctz 20-25 mg Tab) 1 Each Tablet, 1 TAB PO DAILY 06/29/16 Face to Face Encounter I met with patient on the day of dismissal and discussed follow up appointments , medications, and safety plan. Discharge Disposition Dismiss to home in stable condition Copies To 1: NEMO SCHMITT STEPHANIE L MD Jul 01, 2016 15:47
--- NOTE | 2016-07-01 16:30 | NUR ---
Discharge Patient discharged to home at this time. Patient accompanied by RN to front door where she waited for ride. Discharge instructions discussed with patient who voiced understanding. Paperwork and prescriptions sent home with patient. IV discontinued with catheter tip intact.
--- NOTE | 2016-07-04 12:14 | NUR ---
CM THIS CM PLACED A FOLLOW UP CALL, PATIENT DENIES NEEDS. SHE REPORTS SHE WENT TO HER FOLLOW UP DR APPOINTMENT TODAY AND THAT EVERY THING IS GOING GOOD.
== END 2016-07-01 16:30 | disposition home or self-care (01) | DRG 189 ==
LOC: ED 10:38 → INTOOBSV 13:37 → OBSVTOIN 13:37 → EDHOLD 13:37 → MED 13:53 → OBSVTOIN 06-30 12:27 → UNDODISIN 07-01 16:30
PROVIDERS: ADMIT Internal Medicine; ATTEND Internal Medicine
DX: J96.01 Acute respiratory failure with hypoxia (principal); J44.1 Chronic obstructive pulmonary disease with (acute) exacerbation; J11.1 Influenza due to unidentified influenza virus with other respiratory manifestations; F17.210 Nicotine dependence, cigarettes, uncomplicated; I10 Essential (primary) hypertension; E89.0 Postprocedural hypothyroidism; E78.00 Pure hypercholesterolemia, unspecified; E66.9 Obesity, unspecified; R73.9 Hyperglycemia, unspecified; T38.0X5A Adverse effect of glucocorticoids and synthetic analogues, initial encounter; D72.819 Decreased white blood cell count, unspecified; F32.9 Major depressive disorder, single episode, unspecified; Z79.899 Other long term (current) drug therapy; Z68.36 Body mass index [BMI] 36.0-36.9, adult
CPT/HCPCS: 36415; 36430; 80048; 80053; 83880; 84484; 85025; 85379; 87486; 87581; 87633; 87798; 93005; 94640; 94667; 94668; 96374; 99218; 99406